=== PATIENT | female | born 1990 | race Caucasian/White ===

== ENCOUNTER 2017-06-22 17:35 | Inpatient (IN) | payer SELFPAY ==
[2017-06-22] MEDS ORDERED: NS 1000 ML 1,000 ML ONE (17:53)
--- NOTE | 2017-06-22 17:58 | DR.GENAD ---
HPI - PCP Primary Care Physician: NFD - HPI Comment HPI Comment: RUNNING FEVER AND HAVING CHEST PAIN. RAPID HEART RATE. - Complaint/Symptoms Chief Complaint Doctors Comments: SPIDER BITE INNER LT THIGH NOTED YESTERDAY. REDNESS SPREADING. Chief Complaint:: PT C/O FEVER, BITE TO HER LEFT THIGH AND TEMP OF 103.0 Self Treatment fo Chief Complaint: MOTRIN - Nurses notes reviewed Nurses Notes Review: Yes - Source History Provided: Patient - Mode of Arrival Mode of Arrival: Ambulatory - Timing Onset of Chief Complaint: 06/21/17 Came on: Suddenly - Duration Duration: Constant Duration: Days - Severity Severity: Moderate PMH - PMH Past Medical History: No Past Surgical History: Yes Surgical History: Past Surgical History Comment: TUBAL, - Family History History of Family Medical Conditions: No - Social History Does patient currently use any type of tobacco product: No Have you used tobacco products in the last 12 months: No Type of Tobacco Use: None Does any household member use tobacco: No Alcohol Use: None Do you use any recreational Drugs:: No Lives With: Family Lives Where: Home - infectious screening In the last 2 months have you had wt loss of >10#?: NO Have you had fever, night sweats or hemotysis?: No Have you traveled outside the country in the last 6 months?: No Isolation: Standard ROS - Review of Systems Constitutional: No Symptoms Reported Eyes: No Symptoms Reported ENTM: No Symptoms Reported Respiratoy: No Symptoms Reported Cardiovascular: No Symptoms Reported Gastrointestinal/Abdominal: No Symptoms Reported Genitourinary: No Symptoms Reported Neurological: No Symptoms Reported Musculoskeletal: No Symptoms Reported, Left, Hip, Leg Integumentary: Change in Color (REDNESS LEFT INNERTHIGH UPPER I/3.) Hematologic/Lymphatic: No Symptoms Reported Endocrine: No Symptoms Reported All Other Systems: Reviewed and Negative PE - Vital Signs Vitals: Temperature 99.3 F Pulse Rate [Apical] 128 Pulse Rate 143 Respiratory Rate 17 Blood Pressure [Right Arm] 109/54 Blood Pressure 118/78 O2 Sat by Pulse Oximetry 99 - General Limitations: No Limitations General Appearance: Alert - Head Head Exam: Normal Inspection - Eyes Eye exam: Normal Appearance - ENT ENT Exam: Normal External Ear Exam External Ear Exam: Normal External Inspection TM/Canal Exam: Bilateral Normal Nose Exam: Normal Nose Exam Mouth Exam: Normal Inspection Throat Exam: Normal Inspection - Neck Neck Exam: Normal Inspection - Chest Chest Inspection: Symmetric Chest Wall Rise - Respiratory Respiratory Exam: Normal Lung Sounds Bilat Respiratory Exam: Bilateral Clear to Auscultation - Cardiovascular Cardiovascular Exam: Regular Rate, Normal Rhythm, Normal Heart Sounds - Abdominal Exam Abdominal Exam: Normal Inspection - Extremities Extremities Exam: Tenderness (INNER LT THIGH UPPER 1/3.) - Back Back Exam: Normal Inspection - Neurologic Neurological Exam: Alert, Oriented X3 - Psychiatric Psychiatric Exam: Normal Affect, Normal Mood - Skin Skin Exam: Erythema MDM - Additional Information Additional Information Obtained From: Family - Differential Diagnosis Differential Diagnosis: CELLULITIS LEFT THIGH, CHEST PAIN, TACHYCARDIA Course - Treatment Treatment: SEE ORDERS. - Consultation Consultation Comments: DISCUSS PATIENT WITH DR. YE. HE WILL ADMIT PATIENT. - Education/Counseling Education/Counseling: Patient, Family, Education Educated On: Treatment, Diagnosis ROR - Labs Reviewed Laboratory Results Reviewed?: Yes Result Diagrams: 06/23/17 05:54 06/23/17 05:54 Laboratory: WBC 9.8 X10^3/uL (3.6-10.0) 06/22/17 18:20 RBC 4.61 X10^6/uL (3.5-5.4) 06/22/17 18:20 Hgb 13.2 g/dL (12.0-16.0) 06/22/17 18:20 Hct 38.5 % (36.0-47.0) 06/22/17 18:20 MCV 83.5 fL (80.0-100.0) 06/22/17 18:20 MCH 28.7 pg (27.0-34.0) 06/22/17 18:20 MCHC 34.3 g/dL (33.0-35.0) 06/22/17 18:20 RDW 14.6 % (11.6-16.5) 06/22/17 18:20 Plt Count 174 X10^3/uL (150.0-450.0) 06/22/17 18:20 MPV 7.0 fL (7.4-11.0) L 06/22/17 18:20 Neut % 78.5 % (42.0-75.0) H 06/22/17 18:20 Lymph % 14.2 % (21.0-51.0) L 06/22/17 18:20 [place] % 6.6 % (0.0-13.0) 06/22/17 18:20 Eos % 0.4 % (0.9-2.9) L 06/22/17 18:20 Baso % 0.3 % (0.2-1.0) 06/22/17 18:20 Neut # 7.7 x10^3/uL (2.2-4.8) H 06/22/17 18:20 Lymph # 1.4 X10^3/uL (1.3-2.9) 06/22/17 18:20 [place] # 0.6 x10^3/uL (0.3-0.8) 06/22/17 18:20 Eos # 0.0 x10^3/uL (0.0-0.2) 06/22/17 18:20 Baso # 0.0 X10^3/uL (0.0-0.1) 06/22/17 18:20 Absolute Nucleated RBC 0.0 /100WBC 06/22/17 18:20 Sodium 139 mmol/L (136-145) 06/22/17 18:20 Corrected Sodium 139 mmol/L (136-145) 06/22/17 18:20 Potassium 3.5 mmol/L (3.5-5.1) 06/22/17 18:20 Chloride 104 mmol/L (98-107) 06/22/17 18:20 Carbon Dioxide 25.7 mmol/L (21-32) 06/22/17 18:20 BUN 7 mg/dL (7-18) 06/22/17 18:20 Creatinine 0.87 mg/dL (0.55-1.02) 06/22/17 18:20 Est GFR (MDRD) Af Amer > 60 (>60) 06/22/17 18:20 Est GFR (MDRD) Non-Af > 60 (>60) 06/22/17 18:20 Glucose 112 mg/dL (65-99) H 06/22/17 18:20 Lactic Acid 2.9 mmol/L (0.4-2.0) H 06/22/17 18:20 Calcium 9.0 mg/dL (8.5-10.1) 06/22/17 18:20 Corrected Calcium 9.7 mg/dL (8.5-10.1) 06/22/17 18:20 Total Bilirubin 0.40 mg/dL (0.2-1.0) 06/22/17 18:20 AST 170 Units/L (15-37) H 06/22/17 18:20 ALT 587 Units/L (12-78) H 06/22/17 18:20 Alkaline Phosphatase 100 Units/L (46-116) 06/22/17 18:20 C-Reactive Protein 60.60 mg/L (0-3.0) H 06/22/17 18:20 Total Protein 6.7 g/dL (6.4-8.2) 06/22/17 18:20 Albumin 3.1 g/dL (3.4-5.0) L 06/22/17 18:20 Globulin 3.6 g/dL (2.5-4.5) 06/22/17 18:20 Albumin/Globulin Ratio 0.9 Ratio (1.1-2.1) L 06/22/17 18:20 Specimen Type Catherized urine 06/22/17 18:35 Urine Color Pale yellow (YELLOW) 06/22/17 18:35 Urine Appearance Clear (CLEAR) 06/22/17 18:35 Urine pH 7.0 (5.0 - 8.0) 06/22/17 18:35 Ur Specific [place] 1.010 (1.000-1.030) 06/22/17 18:35 Urine Protein Negative (NEGATIVE) 06/22/17 18:35 Urine Glucose (UA) Negative (NEGATIVE) 06/22/17 18:35 Urine Ketones Negative (NEGATIVE) 06/22/17 18:35 Urine Occult Blood Negative (NEGATIVE) 06/22/17 18:35 Urine Nitrite Negative (NEGATIVE) 06/22/17 18:35 Urine Bilirubin Negative (NEGATIVE) 06/22/17 18:35 Urine Urobilinogen Normal (NORMAL) 06/22/17 18:35 Ur Leukocyte Esterase Negative (NEGATIVE) 06/22/17 18:35 Urine RBC None seen /HPF (NEGATIVE) 06/22/17 18:35 Urine WBC 0-1 /HPF (NEGATIVE) 06/22/17 18:35 Ur Squamous Epith Cells Rare /HPF (NEGATIVE) 06/22/17 18:35 Urine Bacteria Trace /HPF (NEGATIVE) 06/22/17 18:35 Ur Culture Indicated? No/not indicated 06/22/17 18:35 Urine Opiates Screen Negative (NEG=<300) 06/22/17 18:35 Urine Methadone Screen Negative (NEG=<300) 06/22/17 18:35 Ur Barbiturates Screen Negative (NEG=<200) 06/22/17 18:35 Ur Phencyclidine Scrn Negative (NEG=<25) 06/22/17 18:35 Ur Amphetamines Screen Negative (NEG=<1000) 06/22/17 18:35 U Benzodiazepines Scrn Negative (NEG=<200) 06/22/17 18:35 Urine Cocaine Screen Negative (NEG=<300) 06/22/17 18:35 U Marijuana (THC) Screen Negative (NEG=<50) 06/22/17 18:35 - XRAY XRAY Interpreted by: Radiologist XRAY Findings: REPORT DISCUSS WITH PATIENT. - EKG Rhythm: NSR - Diagnosis Discharge Problem: Tachycardia, Abnormal LFTs Cellulitis Qualifiers: Site of cellulitis: extremity Site of cellulitis of extremity: lower extremity Laterality: left Qualified Code(s): L03.116 - Cellulitis of left lower limb Chest pain Qualifiers: Chest pain type: precordial pain Qualified Code(s): R07.2 - Precordial pain - Discharge Plan Disposition: ADMITTED INPATIENT Condition: Stable - Follow ups/Referrals - Instructions
[2017-06-22] MEDS ORDERED: NS 1000 ML 1,000 ML IV ONE (18:00)
[2017-06-22 18:36] LABS: BASOPHILS % (AUTO) 0.3 % (0.2-1.0); EOSINOPHILS % (AUTO) 0.4 % (0.9-2.9); HEMATOCRIT 38.5 % (36.0-47.0); HEMOGLOBIN 13.2 g/dL (12.0-16.0); LYMPHOCYTES # (AUTO) 1.4 X10^3/uL (1.3-2.9); LYMPHOCYTES % (AUTO) 14.2 % (21.0-51.0); MEAN CORPUSCULAR HEMOGLOBIN 28.7 pg (27.0-34.0); MEAN CORPUSCULAR HGB CONC 34.3 g/dL (33.0-35.0); MEAN CORPUSCULAR VOLUME 83.5 fL (80.0-100.0); MONOCYTES # (AUTO) 0.6 x10^3/uL (0.3-0.8); MONOCYTES % (AUTO) 6.6 % (0.0-13.0); NEUTROPHILS # (AUTO) 7.7 x10^3/uL (2.2-4.8); NEUTROPHILS % (AUTO) 78.5 % (42.0-75.0); PLATELET COUNT 174 X10^3/uL (150.0-450.0); RED BLOOD COUNT 4.61 X10^6/uL (3.5-5.4); RED CELL DISTRIBUTION WIDTH 14.6 % (11.6-16.5); WHITE BLOOD COUNT 9.8 X10^3/uL (3.6-10.0)
[2017-06-22 18:45] LABS: ALANINE AMINOTRANSFERASE 587 Units/L (12-78); ALBUMIN 3.1 g/dL (3.4-5.0); ALKALINE PHOSPHATASE 100 Units/L (46-116); ASPARTATE AMINO TRANSFERASE 170 Units/L (15-37); BLOOD UREA NITROGEN 7 mg/dL (7-18); CARBON DIOXIDE 25.7 mmol/L (21-32); CHLORIDE 104 mmol/L (98-107); COR CA(FOR HYPOALB) 9.7 mg/dL (8.5-10.1); COR NA(FOR HYPERGLY) 139 mmol/L (136-145); CREATININE 0.87 mg/dL (0.55-1.02); SODIUM 139 mmol/L (136-145); TOTAL PROTEIN 6.7 g/dL (6.4-8.2); eGFR BLACK RACES > 60 (>60); eGFR NON BLACK RACES > 60 (>60)
[2017-06-22 18:50] LABS: BILIRUBIN,URINE NEGATIVE (NEGATIVE); BLOOD/HEMOGLOBIN,URINE NEGATIVE (NEGATIVE); GLUCOSE, URINE NEGATIVE (NEGATIVE); KETONES,URINE NEGATIVE (NEGATIVE); LEUKOCYTE ESTERASE ,URINE NEGATIVE (NEGATIVE); NITRITES,URINE NEGATIVE (NEGATIVE); PROTEIN,URINE NEGATIVE (NEGATIVE); UROBILINOGEN,URINE NORMAL (NORMAL)
[2017-06-22 18:54] LABS: LACTIC ACID 2.9 mmol/L (0.4-2.0)
[2017-06-22 19:03] LABS: APPEARANCE,URINE CLEAR (CLEAR); COLOR,URINE PALE YELLOW (YELLOW); RBC,URINE NONE SEEN /HPF (NEGATIVE)
[2017-06-22 19:04] LABS: BACTERIA,URINE TRACE /HPF (NEGATIVE); SQUAMOUS EPITHELIAL CELL,UR RARE /HPF (NEGATIVE)
[2017-06-22] MEDS ORDERED: VANCOMYCIN HCL 1 GM VIAL ONE (19:59)
[2017-06-22] MEDS ORDERED: NS 250 ML IV 250 ML IV ONE (19:59)
[2017-06-22] MEDS: NS 1000 ML 1,000 ML IV SCH (20:12)
[2017-06-22] MEDS: VANCOMYCIN 1 GM PREMIX (ADDVANTAGE) 250 ML IV SCH ×3 (20:12→22:29)
[2017-06-22] MEDS ORDERED: NS 100 ML IV 100 ML IV ONE (20:33)
[2017-06-22] MEDS: TORADOL 30 MG VIAL IVP PRN (21:10)
--- NOTE | 2017-06-22 21:29 | CT ---
HISTORY: Chest pain Study: CTA with contrast Comparison: none Technique: Multiple axial images of the chest were obtained from the thoracic inlet to the upper abdo men after the administration of IV contrast. Coronal and sagittal 3D MIP reconstructions were perform ed. Findings: The thyroid gland is not is not well visualized. The aorta and pulmonary arteries are well opacified. The aorta is normal caliber with no aneurysm or dissection seen. There is no filling defect or vesse l cut off in the visualized pulmonary arteries. No consolidation or effusion is seen and there is no pulmonary nodule or mass. There is mild pleural thickening and scarring in the apices. The bones are intact IMPRESSION: No evidence of a pulmonary embolus. Unremarkable thoracic aorta Mild pleural thickening and scarring along the apices with no acute infiltrate or effusion. Reported By:
[2017-06-22] MEDS: CLEOCIN 600 MG IV PREMIX 600 MG/50 ML BAG IV SCH (22:55)
[2017-06-22 23:31] VITALS: BMI 23.6
[2017-06-23] MEDS: BENADRYL INJ 50 MG VIAL IVP PRN (00:21)
[2017-06-23] MEDS: TYLENOL 325 MG TAB PO PRN ×4 (01:33→23:52)
[2017-06-23] MEDS: TORADOL 30 MG VIAL IVP PRN ×3 (03:20→20:04)
[2017-06-23] MEDS: CLEOCIN 600 MG IV PREMIX 600 MG/50 ML BAG IV SCH ×3 (05:44→22:16)
[2017-06-23] MEDS: NS 1000 ML 1,000 ML IV SCH ×3 (05:44→20:08)
[2017-06-23 06:19] LABS: BASOPHILS % (AUTO) 0.1 % (0.2-1.0); EOSINOPHILS % (AUTO) 0.7 % (0.9-2.9); HEMATOCRIT 37.3 % (36.0-47.0); HEMOGLOBIN 12.8 g/dL (12.0-16.0); LYMPHOCYTES # (AUTO) 1.4 X10^3/uL (1.3-2.9); LYMPHOCYTES % (AUTO) 22.1 % (21.0-51.0); MEAN CORPUSCULAR HEMOGLOBIN 28.7 pg (27.0-34.0); MEAN CORPUSCULAR HGB CONC 34.3 g/dL (33.0-35.0); MEAN CORPUSCULAR VOLUME 83.7 fL (80.0-100.0); MEAN PLATELET VOLUME 7.5 fL (7.4-11.0); MONOCYTES # (AUTO) 0.4 x10^3/uL (0.3-0.8); NEUTROPHILS # (AUTO) 4.4 x10^3/uL (2.2-4.8); NEUTROPHILS % (AUTO) 70.1 % (42.0-75.0); PLATELET COUNT 136 X10^3/uL (150.0-450.0); RED BLOOD COUNT 4.46 X10^6/uL (3.5-5.4); RED CELL DISTRIBUTION WIDTH 14.7 % (11.6-16.5); WHITE BLOOD COUNT 6.3 X10^3/uL (3.6-10.0)
[2017-06-23 06:24] LABS: ALANINE AMINOTRANSFERASE 374 Units/L (12-78); ALBUMIN 2.6 g/dL (3.4-5.0); ALKALINE PHOSPHATASE 87 Units/L (46-116); ASPARTATE AMINO TRANSFERASE 61 Units/L (15-37); BLOOD UREA NITROGEN 10 mg/dL (7-18); CALCIUM 8.8 mg/dL (8.5-10.1); CARBON DIOXIDE 26.4 mmol/L (21-32); CHLORIDE 106 mmol/L (98-107); COR CA(FOR HYPOALB) 9.9 mg/dL (8.5-10.1); CREATININE 0.92 mg/dL (0.55-1.02); SODIUM 142 mmol/L (136-145); eGFR BLACK RACES > 60 (>60); eGFR NON BLACK RACES > 60 (>60)
[2017-06-23] MEDS ORDERED: NS 250 ML IV 250 ML IV ONE (08:47)
[2017-06-23] MEDS ORDERED: VANCOMYCIN HCL 1 GM VIAL ONE (08:48)
[2017-06-23] MEDS: VANCOMYCIN 1 GM PREMIX (ADDVANTAGE) 250 ML IV SCH ×2 (08:56→22:16)
--- NOTE | 2017-06-23 18:17 | DR.H&P ---
H&P - History & Physical for Day of: H&P Date: 06/22/17 - Chief Complaint Chief Complaint: LEFT LEG PAIN, SWELLING REDNESS, FEVER - Allergies Allergies/Adverse Reactions: Allergies Allergy/AdvReac Type Severity Reaction Status Date / Time No Known Drug Allergies Allergy Verified 06/22/17 17:36 - History of Present Illness History of Present Illness: 27 WF ADMITTED FROM ER AFTER PRESENTING WITH CO INCREASE PAIN AND REDNESS TO LEFT UPPER INNER THIGH WITH FEVER FOR 2 DAYS. PT STATES DENIES ANY KNOWN BITE OR INJURY. PT HAD ABNORMAL LABS IN ED, ELEVATED DDIMER, CTA CHEST IN ED NEGATIVE, PT STARTED ON IV ATBX. PT ADMITTED FOR TREATMENT OF LEFT LOWER EXTREMITY CELLULITIS. - Past Medical History Past Medical History: denies: Diabetes, Hypertension - Past Surgical History Surgical History: - Family History Family Medical History: Diabetes Mellitus, [place], Hypertension - Social History Does patient currently use any type of tobacco product: No Have you used tobacco products in the last 12 months: No Type of Tobacco Use: None How many years tobacco product used: 10 Does any household member use tobacco: No Alcohol Use: None Drug Use: Methamphetamine - Medications Home Medications: NK [NK] 06/22/17 [History Confirmed 06/22/17] - Review of Systems Constitutional: Fever Eyes: No Symptoms Reported ENT: No Symptoms Reported Respiratory: No Symptoms Reported Cardiovascular: No Symptoms Reported Gastrointestinal: No Symptoms Reported Genitourinary: No Symptoms Reported Musculoskeletal: Leg Pain Skin: Rash Neurological: No Symptoms Reported - Physical Exam Vital Signs: Temperature 98.1 F Pulse Rate [Apical] 117 Pulse Rate 143 Respiratory Rate 20 Blood Pressure [Right Arm] 118/61 Blood Pressure 118/78 O2 Sat by Pulse Oximetry 100 Oriented: Normal Eyes: Normal Ear: Normal Nose: Normal Throat: Normal Respiratory: Clear Throughout Cardiovascular: Normal : Normal Auscultation: Bowel Sounds: Normal Palpation: Normal Tenderness: Normal Skin: Rash (LEFT THIGH REDNESS AND EDEMA, INCREASED WARMTH, TENDERNESS) Musculoskeletal: Left, Thigh, Swelling, Tender Psychiatric: Normal Speech Pattern: Clear - Assessment/Plan (1) Cellulitis of left thigh Status: Acute Plan: ADMIT, IV ATBX, PAIN CONTROL, IV HYDRATION. US LLE, ELEVATE LOWER EXTREMITY, RESUME HOME MEDS. REPEAT AM LABS, BLOOD CULTURES (2) Fever Status: Acute
[2017-06-23] MEDS ORDERED: VANCOMYCIN 1 GM PREMIX (ADDVANTAGE) 250 ML IV ONE (20:30)
[2017-06-24] MEDS: BENADRYL INJ 50 MG VIAL IVP PRN (00:11)
[2017-06-24] MEDS: NS 1000 ML 1,000 ML IV SCH ×5 (05:56→20:08)
[2017-06-24 06:17] LABS: BASOPHILS % (AUTO) 0.2 % (0.2-1.0); EOSINOPHILS # (AUTO) 0.1 x10^3/uL (0.0-0.2); EOSINOPHILS % (AUTO) 1.7 % (0.9-2.9); HEMATOCRIT 30.2 % (36.0-47.0); HEMOGLOBIN 10.5 g/dL (12.0-16.0); LYMPHOCYTES # (AUTO) 1.7 X10^3/uL (1.3-2.9); LYMPHOCYTES % (AUTO) 18.9 % (21.0-51.0); MEAN CORPUSCULAR HGB CONC 34.7 g/dL (33.0-35.0); MEAN CORPUSCULAR VOLUME 83.6 fL (80.0-100.0); MEAN PLATELET VOLUME 7.7 fL (7.4-11.0); MONOCYTES # (AUTO) 0.4 x10^3/uL (0.3-0.8); MONOCYTES % (AUTO) 4.7 % (0.0-13.0); NEUTROPHILS # (AUTO) 6.6 x10^3/uL (2.2-4.8); NEUTROPHILS % (AUTO) 74.5 % (42.0-75.0); PLATELET COUNT 123 X10^3/uL (150.0-450.0); RED BLOOD COUNT 3.61 X10^6/uL (3.5-5.4); RED CELL DISTRIBUTION WIDTH 15.2 % (11.6-16.5); WHITE BLOOD COUNT 8.9 X10^3/uL (3.6-10.0)
[2017-06-24 06:28] LABS: ALANINE AMINOTRANSFERASE 197 Units/L (12-78); ALKALINE PHOSPHATASE 79 Units/L (46-116); ASPARTATE AMINO TRANSFERASE 17 Units/L (15-37); BLOOD UREA NITROGEN 12 mg/dL (7-18); CALCIUM 8.2 mg/dL (8.5-10.1); CARBON DIOXIDE 24.5 mmol/L (21-32); CHLORIDE 109 mmol/L (98-107); COR CA(FOR HYPOALB) 9.8 mg/dL (8.5-10.1); CREATININE 0.84 mg/dL (0.55-1.02); SODIUM 141 mmol/L (136-145); TOTAL PROTEIN 5.3 g/dL (6.4-8.2); eGFR BLACK RACES > 60 (>60); eGFR NON BLACK RACES > 60 (>60)
[2017-06-24] MEDS: CLEOCIN 600 MG IV PREMIX 600 MG/50 ML BAG IV SCH (06:33)
[2017-06-24 06:49] LABS: BAND NEUTROPHILS % 12 % (0-10)
[2017-06-24 06:50] LABS: PLATELET MORPHOLOGY COMMENT NORMAL (NORMAL)
[2017-06-24] MEDS: TYLENOL 325 MG TAB PO PRN ×3 (07:24→21:07)
--- NOTE | 2017-06-24 07:44 | VAS ---
HISTORY: Left leg swollen and red Study: Deep vein Doppler ultrasound of the left lower extremity Comparison: No priors TECHNIQUE: Multiple todd scale and color flow Doppler images of the deep venous system were obtained of the left lower extremity. FINDINGS: The deep venous system of the left lower extremity was evaluated from the level of the common femoral vein through the popliteal vein. Normal color flow and augmentation can be observed. In addition, normal compression is seen throughout the deep venous system. IMPRESSION: 1. Negative for DVT. Reported By:
[2017-06-24] MEDS ORDERED: PHARMACY COMMENT IV SCH (08:30)
[2017-06-24] MEDS ORDERED: VANCOMYCIN HCL 1 GM VIAL ONE (08:44)
[2017-06-24] MEDS ORDERED: NS 250 ML IV 250 ML IV ONE (08:44)
[2017-06-24] MEDS: VANCOMYCIN 1 GM PREMIX (ADDVANTAGE) 250 ML IV SCH (08:48)
[2017-06-24 09:24] LABS: VANCOMYCIN,TROUGH 5.5 ug/mL (15-20)
[2017-06-24] MEDS: PERCOCET TAB 5/325 MG PO PRN ×2 (10:36→18:28)
[2017-06-24] MEDS: COLACE CAP 100 MG PO SCH ×2 (10:37→21:05)
[2017-06-24] MEDS: MERREM VIAL 500 MG in NS 100 ML IV 100 ML IV SCH ×2 (13:17→21:41)
[2017-06-24] MEDS: TORADOL 30 MG VIAL IVP PRN ×2 (14:11→20:30)
[2017-06-24] MEDS ORDERED: VANCOMYCIN HCL 1 GM VIAL 1 GM in D5W 250 ML IV 250 ML IV SCH (21:00)
[2017-06-25] MEDS: BENADRYL INJ 50 MG VIAL IVP PRN ×2 (00:07→21:51)
[2017-06-25] MEDS: PERCOCET TAB 5/325 MG PO PRN ×4 (02:00→21:55)
[2017-06-25] MEDS: NS 1000 ML 1,000 ML IV SCH ×2 (05:41→16:30)
[2017-06-25] MEDS: MERREM VIAL 500 MG in NS 100 ML IV 100 ML IV SCH ×3 (05:41→21:50)
[2017-06-25 06:08] LABS: BASOPHILS % (AUTO) 0.3 % (0.2-1.0); EOSINOPHILS # (AUTO) 0.2 x10^3/uL (0.0-0.2); EOSINOPHILS % (AUTO) 2.3 % (0.9-2.9); HEMATOCRIT 27.1 % (36.0-47.0); HEMOGLOBIN 9.5 g/dL (12.0-16.0); LYMPHOCYTES # (AUTO) 1.9 X10^3/uL (1.3-2.9); LYMPHOCYTES % (AUTO) 18.2 % (21.0-51.0); MEAN CORPUSCULAR HEMOGLOBIN 29.2 pg (27.0-34.0); MEAN CORPUSCULAR VOLUME 83.2 fL (80.0-100.0); MEAN PLATELET VOLUME 7.6 fL (7.4-11.0); MONOCYTES # (AUTO) 0.4 x10^3/uL (0.3-0.8); MONOCYTES % (AUTO) 3.9 % (0.0-13.0); NEUTROPHILS # (AUTO) 7.8 x10^3/uL (2.2-4.8); NEUTROPHILS % (AUTO) 75.3 % (42.0-75.0); PLATELET COUNT 123 X10^3/uL (150.0-450.0); RED BLOOD COUNT 3.26 X10^6/uL (3.5-5.4); WHITE BLOOD COUNT 10.3 X10^3/uL (3.6-10.0)
[2017-06-25 06:22] LABS: ALANINE AMINOTRANSFERASE 125 Units/L (12-78); ALBUMIN 1.8 g/dL (3.4-5.0); ALKALINE PHOSPHATASE 83 Units/L (46-116); ASPARTATE AMINO TRANSFERASE 12 Units/L (15-37); BLOOD UREA NITROGEN 13 mg/dL (7-18); CALCIUM 7.8 mg/dL (8.5-10.1); CARBON DIOXIDE 21.3 mmol/L (21-32); CHLORIDE 109 mmol/L (98-107); COR CA(FOR HYPOALB) 9.6 mg/dL (8.5-10.1); CREATININE 0.81 mg/dL (0.55-1.02); SODIUM 141 mmol/L (136-145); TOTAL PROTEIN 5.2 g/dL (6.4-8.2); eGFR BLACK RACES > 60 (>60); eGFR NON BLACK RACES > 60 (>60)
[2017-06-25] MEDS: TYLENOL 325 MG TAB PO PRN ×2 (06:54→19:35)
[2017-06-25 06:59] LABS: ERYTHROCYTE SEDIMENTATION RATE 68 MM/HOUR (0-20)
[2017-06-25] MEDS ORDERED: K-LYTE EFFERVESCENT PO PRN (07:52)
[2017-06-25] MEDS ORDERED: MAG-OX TAB PO PRN (07:52)
[2017-06-25] MEDS: K-DUR TAB 20 MEQ PO SCH ×2 (09:35→21:50)
[2017-06-25] MEDS: TORADOL 30 MG VIAL IVP PRN ×2 (12:36→19:37)
[2017-06-25] MEDS: VANCOMYCIN HCL 1 GM VIAL 1 GM in D5W 250 ML IV 250 ML IV SCH ×2 (13:15→21:50)
--- NOTE | 2017-06-25 14:03 | CT ---
HISTORY: Left upper thigh cellulitis for 3 days. Fever. Study: Computed tomography of the left thigh: Multiple axial images were obtained throughout the lef t thigh after the injection of intravascular contrast per standard protocol. Radiation dose reduction techniques utilized. Comparison: None Findings: There is significant fluid and edema within the subcutaneous fat extending from the upper most image which just above the left iliac crest down along the thigh laterally and anteriorly. Just inferior to the trochanter region it appears to be more just soft tissue stranding and edema in fat and it becom es more fluid-like along the lateral aspect of the thigh following the iliotibial tract. At approxima tely the level of the acetabulum there may actually a focal fluid collection measuring approximately 4.4 by 2.2 by 3.9 cm. This could be a subcutaneous abscess and follow-up ultrasound is recommended. T his is along the toya lateral aspect of the pelvis. Aspiration may be necessary. There is suggestio n of a another small focal fluid collection along the medial aspect of the proximal thigh just inferi or to the labia measuring approximately 3.6 by 1.6 by 2.9 cm. The muscle compartments appear normal. The vasculature appears normal. No evidence of joint effusion is noted in the left hip. The intrapelvic structures appear normal. IMPRESSION: 1. There is diffuse soft tissue swelling with diffuse fluid and edema involving predominantly the sub cutaneous fat along the anterior and lateral aspect of the left pelvis and left thigh. There are 2 ar eas suspicious for focal fluid collections, 1 approximately the level of the acetabulum toya-latera lly and the other just inferior to the labia medially. Ultrasound may be of assistance in defining th clarisse as focal fluid collections and aspiration may need to be performed. Reported By:
[2017-06-25 15:29] LABS: SERUM PREGNANCY TEST, QUAL NEGATIVE <10 mIU/mL
[2017-06-25] MEDS ORDERED: NS 1000 ML 1,000 ML ONE (17:56)
[2017-06-25] MEDS ORDERED: MARCAINE 0.25% INJ ONE (18:21)
[2017-06-25] MEDS ORDERED: XYLOCAINE 1 % (PLAIN) ONE (18:21)
[2017-06-25] MEDS: COLACE CAP 100 MG PO SCH (21:51)
[2017-06-26] MEDS: NS 1000 ML 1,000 ML IV SCH ×2 (02:00→18:36)
[2017-06-26 04:40] LABS: BASOPHILS % (AUTO) 0.6 % (0.2-1.0); EOSINOPHILS # (AUTO) 0.2 x10^3/uL (0.0-0.2); EOSINOPHILS % (AUTO) 2.8 % (0.9-2.9); HEMATOCRIT 27.2 % (36.0-47.0); HEMOGLOBIN 9.3 g/dL (12.0-16.0); LYMPHOCYTES % (AUTO) 24.5 % (21.0-51.0); MEAN CORPUSCULAR HEMOGLOBIN 28.5 pg (27.0-34.0); MEAN CORPUSCULAR HGB CONC 34.3 g/dL (33.0-35.0); MEAN CORPUSCULAR VOLUME 83.2 fL (80.0-100.0); MEAN PLATELET VOLUME 7.6 fL (7.4-11.0); MONOCYTES # (AUTO) 0.5 x10^3/uL (0.3-0.8); MONOCYTES % (AUTO) 5.7 % (0.0-13.0); NEUTROPHILS # (AUTO) 5.4 x10^3/uL (2.2-4.8); NEUTROPHILS % (AUTO) 66.4 % (42.0-75.0); PLATELET COUNT 147 X10^3/uL (150.0-450.0); RED BLOOD COUNT 3.28 X10^6/uL (3.5-5.4); WHITE BLOOD COUNT 8.1 X10^3/uL (3.6-10.0)
[2017-06-26 04:42] LABS: ALANINE AMINOTRANSFERASE 90 Units/L (12-78); ALBUMIN 1.7 g/dL (3.4-5.0); ALKALINE PHOSPHATASE 86 Units/L (46-116); ASPARTATE AMINO TRANSFERASE 14 Units/L (15-37); BLOOD UREA NITROGEN 9 mg/dL (7-18); CALCIUM 7.9 mg/dL (8.5-10.1); CARBON DIOXIDE 25.7 mmol/L (21-32); CHLORIDE 108 mmol/L (98-107); COR CA(FOR HYPOALB) 9.7 mg/dL (8.5-10.1); CREATININE 0.78 mg/dL (0.55-1.02); SODIUM 131 mmol/L (136-145); TOTAL PROTEIN 5.4 g/dL (6.4-8.2); eGFR BLACK RACES > 60 (>60); eGFR NON BLACK RACES > 60 (>60)
[2017-06-26] MEDS: MAGNESIUM SULFATE 1 GM/100 mL PREMIX 1 GM/100 ML BAG IV PRN ×2 (05:26→06:32)
--- NOTE | 2017-06-26 06:19 | RAD ---
HISTORY: Fever, cellulitis, palpitations Study: Chest AP portable Comparison: None Findings: The heart is mildly enlarged. The nii are prominent and indistinct in the interstitium is prominent suggestive of mild interstitial edema. No alveolar edema, alveolar infiltrates, pleural effusions are identified. The bony thorax is unremarkable. IMPRESSION: Mild cardiomegaly with mild interstitial edema which could be cardiogenic or noncardiogenic or due to hypervolemia. Reported By:
[2017-06-26] MEDS: VANCOMYCIN HCL 1 GM VIAL 1 GM in D5W 250 ML IV 250 ML IV SCH ×3 (06:32→21:00)
[2017-06-26] MEDS: MERREM VIAL 500 MG in NS 100 ML IV 100 ML IV SCH ×3 (06:32→21:09)
[2017-06-26] MEDS: TORADOL 30 MG VIAL IVP PRN ×2 (07:18→17:15)
[2017-06-26] MEDS ORDERED: MARCAINE 0.25% INJ ONE (07:57)
[2017-06-26] MEDS ORDERED: NS 1000 ML 1,000 ML ONE (08:17)
[2017-06-26] MEDS ORDERED: FENTANYL INJ 100 mcg ONE (08:27)
[2017-06-26] MEDS ORDERED: NS IRRIGATION 1000 ML 1,000 ML IR ONE (09:30)
[2017-06-26] MEDS ORDERED: DILAUDID INJ ONE (09:44)
[2017-06-26] MEDS ORDERED: NS IRRIGATION 3000 ML 3,000 ML IR ONE (09:45)
[2017-06-26] MEDS: DILAUDID INJ ONE ×3 (10:00→10:30)
[2017-06-26] MEDS ORDERED: REGLAN INJ 10 MG VIAL IVP PRN (10:16)
[2017-06-26] MEDS ORDERED: BENADRYL INJ 50 MG VIAL IVP PRN (10:16)
[2017-06-26] MEDS ORDERED: PHENERGAN INJ 25 MG IVP PRN (10:16)
[2017-06-26] MEDS ORDERED: ZOFRAN INJ 4 MG VIAL IVP PRN (10:16)
[2017-06-26] MEDS ORDERED: DILAUDID INJ IVP PRN (10:16)
--- NOTE | 2017-06-26 10:20 | OR.GENERIC ---
Post-Op Note Generic - Post-Op Note Operative Report: Date of Operation: June 26, 2017 Pre-Operative Diagnosis: Left thigh / inguinal abscess and cellulitis. Post-Operative Diagnosis: Left thigh / inguinal abscess and severe cellulitis. Procedure: Incision and drainage of left thigh / inguinal abscess with washout (pulse lavage). Surgeon: Price Villalba MD Echometer Engineer: Lisy Yanes CRNA Anesthesia: General endotracheal and local. Specimen: Wound culture. Estimated blood loss: Minimal. Complications: None. Summary: The patient is a 27 year old female who presented with left thigh / inguinal cellulitis. The patient was placed on IV antibiotics without improvement. A CT of the region demonstrated two fluid collections that likely represented abscesses. The patient was offered incision and drainage. The risk and benefits of the procedure including difficulty with anesthesia, bleeding, infection, scar formation, delayed healing, as well as recurrence were discussed with the patient. The patient understood these risks and requested the procedure. On June 26, 2017, the patient was brought to the operative theatre. A time out was performed verifying the patient and the procedure. After satisfactory induction of general endotracheal anesthesia, the abdomen, left thigh, and perineum were prepped with Chloraprep and draped in the usual fashion. Significant edema and erythema were noted throughout the anterior thigh and extended onto the left inguinal region. Local anesthetic was infiltrated around the area of greatest induration on the anterior thigh and medial thigh. A small core of skin was removed sharply from both of these locations. The abscess cavities were entered bluntly. Purulent drainage was noted. Cultures from each were obtained and sent to microbiology. All loculations were disrupted bluntly. The abscess cavities connected in the subcutaneous tissue just inferior to the inguinal ligament. The abscess cavity was copiously irrigated. This was performed with a pulse lavage. Retractors were placed and the fascia examined. No fasciitis was seen. Next, a [place] drain was placed through the subcutaneous space and out both incisions. A sterile dressing was placed. The patient was awakened and taken to the recovery room in stable condition. There were no complications. All counts were correct.
[2017-06-26] MEDS ORDERED: LACTINEX GRANULES PO ONE (10:26)
[2017-06-26] MEDS: K-RIDER 10 MEQ/NS 100 ML 10 MEQ/100 ML BAG IV PRN ×4 (13:30→18:37)
[2017-06-26] MEDS: PERCOCET TAB 5/325 MG PO PRN ×2 (14:20→20:50)
[2017-06-26] MEDS: CLEOCIN 600 MG IV PREMIX 600 MG/50 ML BAG IV SCH ×2 (14:21→21:09)
[2017-06-26] MEDS: HEPARIN SODIUM INJ 5000 UNITS SC SCH ×2 (14:22→21:00)
[2017-06-26 15:38] LABS: CREATININE 0.76 mg/dL (0.55-1.02); VANCOMYCIN,TROUGH 9.9 ug/mL (15-20)
[2017-06-26] MEDS ORDERED: VERSED ONE (15:53)
[2017-06-26] MEDS ORDERED: DIPRIVAN VIAL ONE (15:53)
[2017-06-26] MEDS: COLACE CAP 100 MG PO SCH (20:51)
[2017-06-27] MEDS: PERCOCET TAB 5/325 MG PO PRN ×3 (04:20→21:58)
[2017-06-27] MEDS: HEPARIN SODIUM INJ 5000 UNITS SC SCH ×3 (05:24→21:09)
[2017-06-27] MEDS: NS 1000 ML 1,000 ML IV SCH ×3 (05:25→20:52)
[2017-06-27] MEDS: MERREM VIAL 500 MG in NS 100 ML IV 100 ML IV SCH ×3 (05:27→21:00)
[2017-06-27] MEDS: CLEOCIN 600 MG IV PREMIX 600 MG/50 ML BAG IV SCH ×4 (05:27→21:00)
[2017-06-27] MEDS: VANCOMYCIN HCL 1 GM VIAL 1 GM in D5W 250 ML IV 250 ML IV SCH ×3 (05:27→22:40)
[2017-06-27 06:21] LABS: BASOPHILS % (AUTO) 0.7 % (0.2-1.0); EOSINOPHILS # (AUTO) 0.3 x10^3/uL (0.0-0.2); EOSINOPHILS % (AUTO) 4.1 % (0.9-2.9); HEMATOCRIT 27.6 % (36.0-47.0); HEMOGLOBIN 9.6 g/dL (12.0-16.0); LYMPHOCYTES # (AUTO) 2.1 X10^3/uL (1.3-2.9); LYMPHOCYTES % (AUTO) 34.5 % (21.0-51.0); MEAN CORPUSCULAR HEMOGLOBIN 28.9 pg (27.0-34.0); MEAN CORPUSCULAR HGB CONC 34.6 g/dL (33.0-35.0); MEAN CORPUSCULAR VOLUME 83.4 fL (80.0-100.0); MEAN PLATELET VOLUME 7.1 fL (7.4-11.0); MONOCYTES # (AUTO) 0.5 x10^3/uL (0.3-0.8); MONOCYTES % (AUTO) 7.6 % (0.0-13.0); NEUTROPHILS # (AUTO) 3.3 x10^3/uL (2.2-4.8); NEUTROPHILS % (AUTO) 53.1 % (42.0-75.0); PLATELET COUNT 190 X10^3/uL (150.0-450.0); RED BLOOD COUNT 3.31 X10^6/uL (3.5-5.4); RED CELL DISTRIBUTION WIDTH 15.1 % (11.6-16.5); WHITE BLOOD COUNT 6.2 X10^3/uL (3.6-10.0)
[2017-06-27 06:22] LABS: ALANINE AMINOTRANSFERASE 68 Units/L (12-78); ALBUMIN 1.8 g/dL (3.4-5.0); ALKALINE PHOSPHATASE 83 Units/L (46-116); ASPARTATE AMINO TRANSFERASE 10 Units/L (15-37); BLOOD UREA NITROGEN 10 mg/dL (7-18); CALCIUM 8.3 mg/dL (8.5-10.1); CARBON DIOXIDE 27.5 mmol/L (21-32); CHLORIDE 107 mmol/L (98-107); COR CA(FOR HYPOALB) 10.1 mg/dL (8.5-10.1); CREATININE 0.66 mg/dL (0.55-1.02); SODIUM 142 mmol/L (136-145); TOTAL PROTEIN 5.5 g/dL (6.4-8.2); eGFR BLACK RACES > 60 (>60); eGFR NON BLACK RACES > 60 (>60)
[2017-06-27 07:27] LABS: BAND NEUTROPHILS % 2 % (0-10); PLATELET MORPHOLOGY COMMENT NORMAL (NORMAL)
[2017-06-27] MEDS: TORADOL 30 MG VIAL IVP PRN (09:11)
--- NOTE | 2017-06-27 10:24 | PCM.PROG ---
Progress Note - Progress Note for Day of Date: 06/27/17 - Subjective Subjective: Requesting additional pain meds. NPO. (+) OOB. - Past Medical Family Social History Allergies: Allergies No Known Drug Allergies Allergy (Verified 06/22/17 17:36) - Vital Signs and I&O's Vital Signs: Temperature 98.5 F Pulse Rate [Left Brachial] 91 Pulse Rate [Right Brachial] 82 Pulse Rate [Apical] 105 Pulse Rate 90 Respiratory Rate 18 Blood Pressure [Left Arm] 136/86 Blood Pressure [Right Arm] 135/70 Blood Pressure 130/74 O2 Sat by Pulse Oximetry 97 Intake and Output: Intake & Output 06/24/17 06/25/17 06/26/17 06/27/17 11:59 11:59 11:59 11:59 Intake Total 4724 4481 1600 2100 Output Total 4000 Balance 4724 4481 -2400 2100 - Physical Exam Oriented: Normal Eyes: Normal Ear: Normal Nose: Normal Throat: Normal Cardiovascular: Normal : Normal Auscultation: Bowel Sounds: Normal Tenderness: Normal Skin: Red, Tender, Wound (Left anterior thigh with jayson in place. Purulent drainage. Erythema and induration slightly improved. Induration without significant change medial thigh inferior from left labia. ) Musculoskeletal: Left, Thigh, Swelling, Tender Psychiatric: Normal Mood Description: Calm Speech Pattern: Clear, Appropriate - Laboratory and Diagnostics Result Diagrams: 06/27/17 03:55 06/27/17 03:55 Labs: 06/26/17 10:23 Drainage Gram Stain - Final 06/26/17 10:23 Drainage Wound Culture - Preliminary 06/22/17 18:20 Blood Blood Culture - Preliminary 06/22/17 18:07 Blood Blood Culture - Preliminary Laboratory WBC 6.2 X10^3/uL (3.6-10.0) 06/27/17 03:55 RBC 3.31 X10^6/uL (3.5-5.4) L 06/27/17 03:55 Hgb 9.6 g/dL (12.0-16.0) L 06/27/17 03:55 Hct 27.6 % (36.0-47.0) L 06/27/17 03:55 MCV 83.4 fL (80.0-100.0) 06/27/17 03:55 MCH 28.9 pg (27.0-34.0) 06/27/17 03:55 MCHC 34.6 g/dL (33.0-35.0) 06/27/17 03:55 RDW 15.1 % (11.6-16.5) 06/27/17 03:55 Plt Count 190 X10^3/uL (150.0-450.0) 06/27/17 03:55 Plt Count Comment Adequate (ADEQUATE) 06/27/17 03:55 MPV 7.1 fL (7.4-11.0) L 06/27/17 03:55 Neut % 53.1 % (42.0-75.0) 06/27/17 03:55 Lymph % 34.5 % (21.0-51.0) 06/27/17 03:55 [place] % 7.6 % (0.0-13.0) 06/27/17 03:55 Eos % 4.1 % (0.9-2.9) H 06/27/17 03:55 Baso % 0.7 % (0.2-1.0) 06/27/17 03:55 Neut # 3.3 x10^3/uL (2.2-4.8) 06/27/17 03:55 Lymph # 2.1 X10^3/uL (1.3-2.9) 06/27/17 03:55 [place] # 0.5 x10^3/uL (0.3-0.8) 06/27/17 03:55 Eos # 0.3 x10^3/uL (0.0-0.2) H 06/27/17 03:55 Baso # 0.0 X10^3/uL (0.0-0.1) 06/27/17 03:55 Absolute Nucleated RBC 0.1 /100WBC 06/27/17 03:55 Total Counted 100 06/27/17 03:55 Neutrophils % (Manual) 54 % (39-76) 06/27/17 03:55 Band Neutrophils % 2 % (0-10) 06/27/17 03:55 Lymphocytes % (Manual) 36 % (13-43) 06/27/17 03:55 Monocytes % (Manual) 8 % (4-9) 06/27/17 03:55 Eosinophils % (Manual) 1 % (0-6) 06/24/17 05:25 Plt Morphology Comment Normal (NORMAL) 06/27/17 03:55 RBC Morphology Normal (NORMAL) 06/27/17 03:55 ESR 68 MM/HOUR (0-20) H 06/25/17 05:31 D-Dimer 462 ng/mL (0-400) H* 06/22/17 18:20 Sodium 142 mmol/L (136-145) 06/27/17 03:55 Corrected Sodium TNP 06/27/17 03:55 Potassium 3.6 mmol/L (3.5-5.1) 06/27/17 03:55 Chloride 107 mmol/L (98-107) 06/27/17 03:55 Carbon Dioxide 27.5 mmol/L (21-32) 06/27/17 03:55 BUN 10 mg/dL (7-18) 06/27/17 03:55 Creatinine 0.66 mg/dL (0.55-1.02) 06/27/17 03:55 Est GFR (MDRD) Af Amer > 60 (>60) 06/27/17 03:55 Est GFR (MDRD) Non-Af > 60 (>60) 06/27/17 03:55 Glucose 84 mg/dL (65-99) 06/27/17 03:55 Lactic Acid 2.9 mmol/L (0.4-2.0) H 06/22/17 18:20 Calcium 8.3 mg/dL (8.5-10.1) L 06/27/17 03:55 Corrected Calcium 10.1 mg/dL (8.5-10.1) 06/27/17 03:55 Magnesium 1.8 mg/dL (1.7-2.9) 06/26/17 03:15 Total Bilirubin 0.20 mg/dL (0.2-1.0) 06/27/17 03:55 AST 10 Units/L (15-37) L 06/27/17 03:55 ALT 68 Units/L (12-78) 06/27/17 03:55 Alkaline Phosphatase 83 Units/L (46-116) 06/27/17 03:55 C-Reactive Protein 70.40 mg/L (0-3.0) H 06/27/17 08:50 Total Protein 5.5 g/dL (6.4-8.2) L 06/27/17 03:55 Albumin 1.8 g/dL (3.4-5.0) L 06/27/17 03:55 Globulin 3.7 g/dL (2.5-4.5) 06/27/17 03:55 Albumin/Globulin Ratio 0.5 Ratio (1.1-2.1) L 06/27/17 03:55 TSH 3rd Generation 2.592 uIU/mL (0.358-3.74) 06/22/17 18:20 HCG, Qual Negative <10 mIU/mL 06/25/17 14:46 Specimen Type Catherized urine 06/22/17 18:35 Urine Color Pale yellow (YELLOW) 06/22/17 18:35 Urine Appearance Clear (CLEAR) 06/22/17 18:35 Urine pH 7.0 (5.0 - 8.0) 06/22/17 18:35 Ur Specific [place] 1.010 (1.000-1.030) 06/22/17 18:35 Urine Protein Negative (NEGATIVE) 06/22/17 18:35 Urine Glucose (UA) Negative (NEGATIVE) 06/22/17 18:35 Urine Ketones Negative (NEGATIVE) 06/22/17 18:35 Urine Occult Blood Negative (NEGATIVE) 06/22/17 18:35 Urine Nitrite Negative (NEGATIVE) 06/22/17 18:35 Urine Bilirubin Negative (NEGATIVE) 06/22/17 18:35 Urine Urobilinogen Normal (NORMAL) 06/22/17 18:35 Ur Leukocyte Esterase Negative (NEGATIVE) 06/22/17 18:35 Urine RBC None seen /HPF (NEGATIVE) 06/22/17 18:35 Urine WBC 0-1 /HPF (NEGATIVE) 06/22/17 18:35 Ur Squamous Epith Cells Rare /HPF (NEGATIVE) 06/22/17 18:35 Urine Bacteria Trace /HPF (NEGATIVE) 06/22/17 18:35 Ur Culture Indicated? No/not indicated 06/22/17 18:35 Vancomycin Trough 9.9 ug/mL (15-20) L 06/26/17 15:01 Urine Opiates Screen Negative (NEG=<300) 06/22/17 18:35 Urine Methadone Screen Negative (NEG=<300) 06/22/17 18:35 Ur Barbiturates Screen Negative (NEG=<200) 06/22/17 18:35 Ur Phencyclidine Scrn Negative (NEG=<25) 06/22/17 18:35 Ur Amphetamines Screen Negative (NEG=<1000) 06/22/17 18:35 U Benzodiazepines Scrn Negative (NEG=<200) 06/22/17 18:35 Urine Cocaine Screen Negative (NEG=<300) 06/22/17 18:35 U Marijuana (THC) Screen Negative (NEG=<50) 06/22/17 18:35 - Plan (1) Cellulitis of left thigh Status: Acute Plan: Continue IV abx. Leave jayson in place. Monitor medial thigh. May need washout and exam under anesthesia in region of concern. Await cultures. Will follow. Pain meds per PCP. Restart diet.
[2017-06-27] MEDS: TORADOL 30 MG VIAL IVP SCH ×2 (14:45→20:53)
[2017-06-27] MEDS: BENADRYL INJ 50 MG VIAL IVP PRN (20:59)
[2017-06-27] MEDS: COLACE CAP 100 MG PO SCH ×2 (20:59→21:00)
[2017-06-27 21:35] LABS: CREATININE 0.79 mg/dL (0.55-1.02); VANCOMYCIN,TROUGH 11.2 ug/mL (15-20)
[2017-06-27] MEDS ORDERED: PERCOCET TAB 5/325 MG PO ONE (23:02)
[2017-06-28] MEDS: TORADOL 30 MG VIAL IVP SCH ×4 (00:45→19:23)
[2017-06-28] MEDS: PERCOCET TAB 5/325 MG PO PRN ×4 (03:42→21:40)
[2017-06-28 05:12] LABS: BASOPHILS % (AUTO) 0.6 % (0.2-1.0); EOSINOPHILS # (AUTO) 0.3 x10^3/uL (0.0-0.2); EOSINOPHILS % (AUTO) 3.5 % (0.9-2.9); HEMATOCRIT 29.3 % (36.0-47.0); LYMPHOCYTES # (AUTO) 2.8 X10^3/uL (1.3-2.9); LYMPHOCYTES % (AUTO) 38.2 % (21.0-51.0); MEAN CORPUSCULAR HEMOGLOBIN 28.4 pg (27.0-34.0); MEAN CORPUSCULAR HGB CONC 34.1 g/dL (33.0-35.0); MEAN CORPUSCULAR VOLUME 83.3 fL (80.0-100.0); MEAN PLATELET VOLUME 6.8 fL (7.4-11.0); MONOCYTES # (AUTO) 0.5 x10^3/uL (0.3-0.8); NEUTROPHILS # (AUTO) 3.7 x10^3/uL (2.2-4.8); NEUTROPHILS % (AUTO) 50.7 % (42.0-75.0); PLATELET COUNT 247 X10^3/uL (150.0-450.0); RED BLOOD COUNT 3.51 X10^6/uL (3.5-5.4); RED CELL DISTRIBUTION WIDTH 15.1 % (11.6-16.5); WHITE BLOOD COUNT 7.3 X10^3/uL (3.6-10.0)
[2017-06-28 05:26] LABS: ALANINE AMINOTRANSFERASE 50 Units/L (12-78); ALBUMIN 1.8 g/dL (3.4-5.0); ALKALINE PHOSPHATASE 79 Units/L (46-116); ASPARTATE AMINO TRANSFERASE 8 Units/L (15-37); BLOOD UREA NITROGEN 8 mg/dL (7-18); CHLORIDE 108 mmol/L (98-107); COR CA(FOR HYPOALB) 9.8 mg/dL (8.5-10.1); CREATININE 0.67 mg/dL (0.55-1.02); SODIUM 143 mmol/L (136-145); TOTAL PROTEIN 5.5 g/dL (6.4-8.2); eGFR BLACK RACES > 60 (>60); eGFR NON BLACK RACES > 60 (>60)
[2017-06-28] MEDS: HEPARIN SODIUM INJ 5000 UNITS SC SCH ×3 (05:53→21:44)
[2017-06-28] MEDS: CLEOCIN 600 MG IV PREMIX 600 MG/50 ML BAG IV SCH ×3 (05:53→16:05)
[2017-06-28] MEDS: MERREM VIAL 500 MG in NS 100 ML IV 100 ML IV SCH ×3 (05:53→21:37)
[2017-06-28] MEDS: VANCOMYCIN HCL 1 GM VIAL 1 GM in D5W 250 ML IV 250 ML IV SCH ×3 (05:53→21:36)
[2017-06-28 05:56] LABS: BAND NEUTROPHILS % 3 % (0-10); PLATELET MORPHOLOGY COMMENT NORMAL (NORMAL)
[2017-06-28] MEDS: NS 1000 ML 1,000 ML IV SCH ×4 (05:57→21:28)
--- NOTE | 2017-06-28 20:56 | PCM.PROG ---
Progress Note - Progress Note for Day of Date: 06/27/17 - Subjective Subjective: WAS ADMITTED FOR LEFT UPPER THIGH CELLULITIS. A CT OF THE LEFT LOWER EXTREMITY THAT WAS OBTAINED ON 06/25/17 REPORTED 2 AREAS THAT WERE SUSPICIOUS FOR FOCUL FLUID COLLECTIONS, 1 APPROXIMATELY THE LEVEL OF THE ACETABULUM ANTEROPLATERALLY AND THE OTHER JUST INFERIOR TO THE LABIA MEDIALLY. IT SUGGESTION THE ASPIRATION MAY BE NEEDED. WAS CONSULTED AND TOOK PATIENT TO THE OR FOR I&D OF THE LEFT THIGH/INGUINAL ABSCESS WITH WASHOUT ( PULSE LAVAGE). SHE HAS BEEN RECEIVING IV ANTIBIOTICS. TODAY, PATIENT IS ALERT AND ORIENTED, LYING IN BED ON MORNING ROUNDS. SHE IS NOTED WITH COMPLAINTS OF LEFT LEG PAIN. LEG CONTINUES WITH EDEMA AND ERYTHEMA THROUGHOUT THE THIGHT AND INGUINAL REGION. A DRESSING IS NOTED TO WOUND, DRY AND INTACT AT THIS TIME. HER VITALS SIGNS THIS MORNING ARE 98.5-82-18-97%-135/70. ABNORMAL LAB VALUES INCLUDE THE FOLLOWING: RBC 3.31, HGB 9.6, HCT 27.6, CALCIUM 8.3, AST 10, TOTAL PROTEIN 5.5, ALBUMIN 1.8, A/G RATIO 0.5, ESR 67, CRP 70.40. PRELIMINARY WOUND CULTURES REPORT GROWTH OF GRAM POSITIVE COCCI. WE WILL CHANGE THE TORADOL TO SCHEDULED DOSES. OTHERWISE, WE WILL CONTINUE WITH CURRENT PLAN OF CARE. WE PLAN TO FOLLOW UP WITH AM LABS AND CONTINUE TO MONITOR PATIENT. - Past Medical Family Social History Past Med/Fam/Surg Hx: No changes since H&P Allergies: Allergies No Known Drug Allergies Allergy (Verified 06/22/17 17:36) - Review of Systems ROS: No change since H&P - Vital Signs and I&O's Vital Signs: Temperature 98.1 F Pulse Rate [Left Brachial] 96 Pulse Rate [Right Brachial] 76 Pulse Rate [Apical] 105 Pulse Rate 90 Respiratory Rate 20 Blood Pressure [Left Arm] 129/75 Blood Pressure [Right Arm] 142/75 Blood Pressure 130/74 O2 Sat by Pulse Oximetry 97 Intake and Output: Intake & Output 06/26/17 06/27/17 06/28/17 06/29/17 11:59 11:59 11:59 11:59 Intake Total 1600 2100 2730 900 Output Total 4000 Balance -2400 2100 2730 900 - Physical Exam Oriented: Normal Eyes: Normal Ear: Normal Nose: Normal Throat: Normal Respiratory: Normal Cardiovascular: Normal : Normal Auscultation: Bowel Sounds: Normal Palpation: Normal Tenderness: Normal Skin: Red, Tender, Wound (Left anterior thigh with jayson in place. Purulent drainage. Erythema and induration slightly improved. Induration without significant change medial thigh inferior from left labia. ) Musculoskeletal: Left, Thigh, Swelling, Tender Psychiatric: Normal Mood Description: Calm Speech Pattern: Clear, Appropriate - Laboratory and Diagnostics Result Diagrams: 06/28/17 03:35 06/28/17 03:35 Labs: 06/22/17 18:07 Blood Blood Culture - Final 06/22/17 18:20 Blood Blood Culture - Final 06/26/17 10:23 Drainage Gram Stain - Final 06/26/17 10:23 Drainage Wound Culture - Final Methicillin Resis Staph Aureus Laboratory WBC 7.3 X10^3/uL (3.6-10.0) 06/28/17 03:35 RBC 3.51 X10^6/uL (3.5-5.4) 06/28/17 03:35 Hgb 10.0 g/dL (12.0-16.0) L 06/28/17 03:35 Hct 29.3 % (36.0-47.0) L 06/28/17 03:35 MCV 83.3 fL (80.0-100.0) 06/28/17 03:35 MCH 28.4 pg (27.0-34.0) 06/28/17 03:35 MCHC 34.1 g/dL (33.0-35.0) 06/28/17 03:35 RDW 15.1 % (11.6-16.5) 06/28/17 03:35 Plt Count 247 X10^3/uL (150.0-450.0) 06/28/17 03:35 Plt Count Comment Adequate (ADEQUATE) 06/28/17 03:35 MPV 6.8 fL (7.4-11.0) L 06/28/17 03:35 Neut % 50.7 % (42.0-75.0) 06/28/17 03:35 Lymph % 38.2 % (21.0-51.0) 06/28/17 03:35 [place] % 7.0 % (0.0-13.0) 06/28/17 03:35 Eos % 3.5 % (0.9-2.9) H 06/28/17 03:35 Baso % 0.6 % (0.2-1.0) 06/28/17 03:35 Neut # 3.7 x10^3/uL (2.2-4.8) 06/28/17 03:35 Lymph # 2.8 X10^3/uL (1.3-2.9) 06/28/17 03:35 [place] # 0.5 x10^3/uL (0.3-0.8) 06/28/17 03:35 Eos # 0.3 x10^3/uL (0.0-0.2) H 06/28/17 03:35 Baso # 0.0 X10^3/uL (0.0-0.1) 06/28/17 03:35 Absolute Nucleated RBC 0.1 /100WBC 06/28/17 03:35 Total Counted 100 06/28/17 03:35 Neutrophils % (Manual) 51 % (39-76) 06/28/17 03:35 Band Neutrophils % 3 % (0-10) 06/28/17 03:35 Lymphocytes % (Manual) 34 % (13-43) 06/28/17 03:35 Monocytes % (Manual) 7 % (4-9) 06/28/17 03:35 Eosinophils % (Manual) 5 % (0-6) 06/28/17 03:35 Plt Morphology Comment Normal (NORMAL) 06/28/17 03:35 RBC Morphology Normal (NORMAL) 06/28/17 03:35 ESR 67 MM/HOUR (0-20) H 06/27/17 08:50 D-Dimer 462 ng/mL (0-400) H* 06/22/17 18:20 Sodium 143 mmol/L (136-145) 06/28/17 03:35 Corrected Sodium TNP 06/28/17 03:35 Potassium 3.4 mmol/L (3.5-5.1) L 06/28/17 03:35 Chloride 108 mmol/L (98-107) H 06/28/17 03:35 Carbon Dioxide 28.0 mmol/L (21-32) 06/28/17 03:35 BUN 8 mg/dL (7-18) 06/28/17 03:35 Creatinine 0.67 mg/dL (0.55-1.02) 06/28/17 03:35 Est GFR (MDRD) Af Amer > 60 (>60) 06/28/17 03:35 Est GFR (MDRD) Non-Af > 60 (>60) 06/28/17 03:35 Glucose 81 mg/dL (65-99) 06/28/17 03:35 Lactic Acid 2.9 mmol/L (0.4-2.0) H 06/22/17 18:20 Calcium 8.0 mg/dL (8.5-10.1) L 06/28/17 03:35 Corrected Calcium 9.8 mg/dL (8.5-10.1) 06/28/17 03:35 Magnesium 1.8 mg/dL (1.7-2.9) 06/26/17 03:15 Total Bilirubin 0.10 mg/dL (0.2-1.0) L 06/28/17 03:35 AST 8 Units/L (15-37) L 06/28/17 03:35 ALT 50 Units/L (12-78) 06/28/17 03:35 Alkaline Phosphatase 79 Units/L (46-116) 06/28/17 03:35 C-Reactive Protein 70.40 mg/L (0-3.0) H 06/27/17 08:50 Total Protein 5.5 g/dL (6.4-8.2) L 06/28/17 03:35 Albumin 1.8 g/dL (3.4-5.0) L 06/28/17 03:35 Globulin 3.7 g/dL (2.5-4.5) 06/28/17 03:35 Albumin/Globulin Ratio 0.5 Ratio (1.1-2.1) L 06/28/17 03:35 TSH 3rd Generation 2.592 uIU/mL (0.358-3.74) 06/22/17 18:20 HCG, Qual Negative <10 mIU/mL 06/25/17 14:46 Specimen Type Catherized urine 06/22/17 18:35 Urine Color Pale yellow (YELLOW) 06/22/17 18:35 Urine Appearance Clear (CLEAR) 06/22/17 18:35 Urine pH 7.0 (5.0 - 8.0) 06/22/17 18:35 Ur Specific [place] 1.010 (1.000-1.030) 06/22/17 18:35 Urine Protein Negative (NEGATIVE) 06/22/17 18:35 Urine Glucose (UA) Negative (NEGATIVE) 06/22/17 18:35 Urine Ketones Negative (NEGATIVE) 06/22/17 18:35 Urine Occult Blood Negative (NEGATIVE) 06/22/17 18:35 Urine Nitrite Negative (NEGATIVE) 06/22/17 18:35 Urine Bilirubin Negative (NEGATIVE) 06/22/17 18:35 Urine Urobilinogen Normal (NORMAL) 06/22/17 18:35 Ur Leukocyte Esterase Negative (NEGATIVE) 06/22/17 18:35 Urine RBC None seen /HPF (NEGATIVE) 06/22/17 18:35 Urine WBC 0-1 /HPF (NEGATIVE) 06/22/17 18:35 Ur Squamous Epith Cells Rare /HPF (NEGATIVE) 06/22/17 18:35 Urine Bacteria Trace /HPF (NEGATIVE) 06/22/17 18:35 Ur Culture Indicated? No/not indicated 06/22/17 18:35 Vancomycin Trough 11.2 ug/mL (15-20) L 06/27/17 21:05 Urine Opiates Screen Negative (NEG=<300) 06/22/17 18:35 Urine Methadone Screen Negative (NEG=<300) 06/22/17 18:35 Ur Barbiturates Screen Negative (NEG=<200) 06/22/17 18:35 Ur Phencyclidine Scrn Negative (NEG=<25) 06/22/17 18:35 Ur Amphetamines Screen Negative (NEG=<1000) 06/22/17 18:35 U Benzodiazepines Scrn Negative (NEG=<200) 06/22/17 18:35 Urine Cocaine Screen Negative (NEG=<300) 06/22/17 18:35 U Marijuana (THC) Screen Negative (NEG=<50) 06/22/17 18:35 - Plan (1) Cellulitis of left thigh Status: Acute Plan: Continue IV abx. Leave jayson in place. Monitor medial thigh. May need washout and exam under anesthesia in region of concern. Await cultures. Will follow. Pain meds per PCP. Restart diet.
--- NOTE | 2017-06-28 20:57 | PCM.PROG ---
Progress Note - Progress Note for Day of Date: 06/28/17 - Subjective Subjective: WAS ADMITTED FOR LEFT UPPER THIGH CELLULITIS. WAS CONSULTED AND TOOK PATIENT TO THE OR FOR I&D OF THE LEFT THIGH/INGUINAL ABSCESS WITH WASHOUT (PULSE LAVAGE). SHE HAS BEEN RECEIVING IV ANTIBIOTICS. TODAY, PATIENT IS ALERT AND ORIENTED, LYING IN BED ON MORNING ROUNDS. LEG CONTINUES WITH EDEMA AND ERYTHEMA THROUGHOUT THE THIGHT AND INGUINAL REGION THAT HAS SLIGHTLY IMPROVED SINCE YESTERDAY. A DRESSING IS NOTED TO WOUND. DRESSING REMOVED TO ASSESS. WOUND IS NOTED WITH PURULENT DRAINAGE. THERE IS A JAYSON DRAIN IN PLACE. HER VITALS SIGNS THIS MORNING ARE 97.9-80-20-98%-140/ 84. ABNORMAL LAB VALUES INCLUDE THE FOLLOWING: HGB 10.0, HCT 29.3, POTASSIUM 3.4 , CHLORIDE 108, CALCIUM 8.0, AST 8, TOTAL PROTEIN 5.5, ALBUMIN 1.8, A/G RATIO 0.5. WOUND CULTURE REPORTED GROWTH OF MRSA WHICH WAS SENSITIVE TO VANCOMYCIN. PATIENT WAS ALSO ON CLINDAMYCIN, BUT SENSITIVITY REPORTED THAT THE MRSA WAS NOT SUSCEPTIBLE TO CLINDAMYCIN. WE WILL DISCONTINUE THE CLINDAMYCIN. OTHERWISE, WE WILL CONTINUE WITH CURRENT PLAN OF CARE. WE PLAN TO FOLLOW UP WITH AM LABS AND CONTINUE TO MONITOR PATIENT. AND [facility] WILL RESUME CARE OF PATIENT TOMORROW. - Past Medical Family Social History Past Med/Fam/Surg Hx: No changes since H&P Allergies: Allergies No Known Drug Allergies Allergy (Verified 06/22/17 17:36) - Review of Systems ROS: No change since H&P - Vital Signs and I&O's Vital Signs: Temperature 98.1 F Pulse Rate [Left Brachial] 96 Pulse Rate [Right Brachial] 76 Pulse Rate [Apical] 105 Pulse Rate 90 Respiratory Rate 20 Blood Pressure [Left Arm] 129/75 Blood Pressure [Right Arm] 142/75 Blood Pressure 130/74 O2 Sat by Pulse Oximetry 97 Intake and Output: Intake & Output 06/26/17 06/27/17 06/28/17 06/29/17 11:59 11:59 11:59 11:59 Intake Total 1600 2100 2730 900 Output Total 4000 Balance -2400 2100 2730 900 - Physical Exam Oriented: Normal Eyes: Normal Ear: Normal Nose: Normal Throat: Normal Respiratory: Normal Cardiovascular: Normal : Normal Auscultation: Bowel Sounds: Normal Palpation: Normal Tenderness: Normal Skin: Red, Tender, Wound (Left anterior thigh with jayson in place. Purulent drainage. Erythema and induration slightly improved. Induration without significant change medial thigh inferior from left labia. ) Musculoskeletal: Left, Thigh, Swelling, Tender Psychiatric: Normal Mood Description: Calm Speech Pattern: Clear, Appropriate - Laboratory and Diagnostics Result Diagrams: 06/28/17 03:35 06/28/17 03:35 Labs: 06/22/17 18:07 Blood Blood Culture - Final 06/22/17 18:20 Blood Blood Culture - Final 06/26/17 10:23 Drainage Gram Stain - Final 06/26/17 10:23 Drainage Wound Culture - Final Methicillin Resis Staph Aureus Laboratory WBC 7.3 X10^3/uL (3.6-10.0) 06/28/17 03:35 RBC 3.51 X10^6/uL (3.5-5.4) 06/28/17 03:35 Hgb 10.0 g/dL (12.0-16.0) L 06/28/17 03:35 Hct 29.3 % (36.0-47.0) L 06/28/17 03:35 MCV 83.3 fL (80.0-100.0) 06/28/17 03:35 MCH 28.4 pg (27.0-34.0) 06/28/17 03:35 MCHC 34.1 g/dL (33.0-35.0) 06/28/17 03:35 RDW 15.1 % (11.6-16.5) 06/28/17 03:35 Plt Count 247 X10^3/uL (150.0-450.0) 06/28/17 03:35 Plt Count Comment Adequate (ADEQUATE) 06/28/17 03:35 MPV 6.8 fL (7.4-11.0) L 06/28/17 03:35 Neut % 50.7 % (42.0-75.0) 06/28/17 03:35 Lymph % 38.2 % (21.0-51.0) 06/28/17 03:35 [place] % 7.0 % (0.0-13.0) 06/28/17 03:35 Eos % 3.5 % (0.9-2.9) H 06/28/17 03:35 Baso % 0.6 % (0.2-1.0) 06/28/17 03:35 Neut # 3.7 x10^3/uL (2.2-4.8) 06/28/17 03:35 Lymph # 2.8 X10^3/uL (1.3-2.9) 06/28/17 03:35 [place] # 0.5 x10^3/uL (0.3-0.8) 06/28/17 03:35 Eos # 0.3 x10^3/uL (0.0-0.2) H 06/28/17 03:35 Baso # 0.0 X10^3/uL (0.0-0.1) 06/28/17 03:35 Absolute Nucleated RBC 0.1 /100WBC 06/28/17 03:35 Total Counted 100 06/28/17 03:35 Neutrophils % (Manual) 51 % (39-76) 06/28/17 03:35 Band Neutrophils % 3 % (0-10) 06/28/17 03:35 Lymphocytes % (Manual) 34 % (13-43) 06/28/17 03:35 Monocytes % (Manual) 7 % (4-9) 06/28/17 03:35 Eosinophils % (Manual) 5 % (0-6) 06/28/17 03:35 Plt Morphology Comment Normal (NORMAL) 06/28/17 03:35 RBC Morphology Normal (NORMAL) 06/28/17 03:35 ESR 67 MM/HOUR (0-20) H 06/27/17 08:50 D-Dimer 462 ng/mL (0-400) H* 06/22/17 18:20 Sodium 143 mmol/L (136-145) 06/28/17 03:35 Corrected Sodium TNP 06/28/17 03:35 Potassium 3.4 mmol/L (3.5-5.1) L 06/28/17 03:35 Chloride 108 mmol/L (98-107) H 06/28/17 03:35 Carbon Dioxide 28.0 mmol/L (21-32) 06/28/17 03:35 BUN 8 mg/dL (7-18) 06/28/17 03:35 Creatinine 0.67 mg/dL (0.55-1.02) 06/28/17 03:35 Est GFR (MDRD) Af Amer > 60 (>60) 06/28/17 03:35 Est GFR (MDRD) Non-Af > 60 (>60) 06/28/17 03:35 Glucose 81 mg/dL (65-99) 06/28/17 03:35 Lactic Acid 2.9 mmol/L (0.4-2.0) H 06/22/17 18:20 Calcium 8.0 mg/dL (8.5-10.1) L 06/28/17 03:35 Corrected Calcium 9.8 mg/dL (8.5-10.1) 06/28/17 03:35 Magnesium 1.8 mg/dL (1.7-2.9) 06/26/17 03:15 Total Bilirubin 0.10 mg/dL (0.2-1.0) L 06/28/17 03:35 AST 8 Units/L (15-37) L 06/28/17 03:35 ALT 50 Units/L (12-78) 06/28/17 03:35 Alkaline Phosphatase 79 Units/L (46-116) 06/28/17 03:35 C-Reactive Protein 70.40 mg/L (0-3.0) H 06/27/17 08:50 Total Protein 5.5 g/dL (6.4-8.2) L 06/28/17 03:35 Albumin 1.8 g/dL (3.4-5.0) L 06/28/17 03:35 Globulin 3.7 g/dL (2.5-4.5) 06/28/17 03:35 Albumin/Globulin Ratio 0.5 Ratio (1.1-2.1) L 06/28/17 03:35 TSH 3rd Generation 2.592 uIU/mL (0.358-3.74) 06/22/17 18:20 HCG, Qual Negative <10 mIU/mL 06/25/17 14:46 Specimen Type Catherized urine 06/22/17 18:35 Urine Color Pale yellow (YELLOW) 06/22/17 18:35 Urine Appearance Clear (CLEAR) 06/22/17 18:35 Urine pH 7.0 (5.0 - 8.0) 11/06/17 18:35 Ur Specific [place] 1.010 (1.000-1.030) 06/22/17 18:35 Urine Protein Negative (NEGATIVE) 06/22/17 18:35 Urine Glucose (UA) Negative (NEGATIVE) 06/22/17 18:35 Urine Ketones Negative (NEGATIVE) 06/22/17 18:35 Urine Occult Blood Negative (NEGATIVE) 06/22/17 18:35 Urine Nitrite Negative (NEGATIVE) 06/22/17 18:35 Urine Bilirubin Negative (NEGATIVE) 06/22/17 18:35 Urine Urobilinogen Normal (NORMAL) 06/22/17 18:35 Ur Leukocyte Esterase Negative (NEGATIVE) 06/22/17 18:35 Urine RBC None seen /HPF (NEGATIVE) 06/22/17 18:35 Urine WBC 0-1 /HPF (NEGATIVE) 06/22/17 18:35 Ur Squamous Epith Cells Rare /HPF (NEGATIVE) 06/22/17 18:35 Urine Bacteria Trace /HPF (NEGATIVE) 06/22/17 18:35 Ur Culture Indicated? No/not indicated 06/22/17 18:35 Vancomycin Trough 11.2 ug/mL (15-20) L 06/27/17 21:05 Urine Opiates Screen Negative (NEG=<300) 06/22/17 18:35 Urine Methadone Screen Negative (NEG=<300) 06/22/17 18:35 Ur Barbiturates Screen Negative (NEG=<200) 06/22/17 18:35 Ur Phencyclidine Scrn Negative (NEG=<25) 06/22/17 18:35 Ur Amphetamines Screen Negative (NEG=<1000) 06/22/17 18:35 U Benzodiazepines Scrn Negative (NEG=<200) 06/22/17 18:35 Urine Cocaine Screen Negative (NEG=<300) 06/22/17 18:35 U Marijuana (THC) Screen Negative (NEG=<50) 06/22/17 18:35 - Plan (1) Cellulitis of left thigh Status: Acute Plan: Continue IV abx. Leave jayson in place. Monitor medial thigh. May need washout and exam under anesthesia in region of concern. Continue to monitor.
[2017-06-28] MEDS: COLACE CAP 100 MG PO SCH (21:33)
[2017-06-28] MEDS: BENADRYL INJ 50 MG VIAL IVP PRN (21:36)
[2017-06-29] MEDS: TORADOL 30 MG VIAL IVP SCH ×4 (02:27→19:11)
[2017-06-29] MEDS: NS 1000 ML 1,000 ML IV SCH ×3 (02:27→15:00)
[2017-06-29 05:18] LABS: BASOPHILS # (AUTO) 0.1 X10^3/uL (0.0-0.1); BASOPHILS % (AUTO) 0.7 % (0.2-1.0); EOSINOPHILS # (AUTO) 0.3 x10^3/uL (0.0-0.2); EOSINOPHILS % (AUTO) 3.1 % (0.9-2.9); HEMATOCRIT 27.6 % (36.0-47.0); HEMOGLOBIN 9.6 g/dL (12.0-16.0); LYMPHOCYTES % (AUTO) 36.1 % (21.0-51.0); MEAN CORPUSCULAR HEMOGLOBIN 28.8 pg (27.0-34.0); MEAN CORPUSCULAR HGB CONC 34.9 g/dL (33.0-35.0); MEAN CORPUSCULAR VOLUME 82.5 fL (80.0-100.0); MEAN PLATELET VOLUME 6.8 fL (7.4-11.0); MONOCYTES # (AUTO) 0.4 x10^3/uL (0.3-0.8); NEUTROPHILS # (AUTO) 4.6 x10^3/uL (2.2-4.8); NEUTROPHILS % (AUTO) 55.1 % (42.0-75.0); PLATELET COUNT 321 X10^3/uL (150.0-450.0); RED BLOOD COUNT 3.35 X10^6/uL (3.5-5.4); RED CELL DISTRIBUTION WIDTH 15.3 % (11.6-16.5); WHITE BLOOD COUNT 8.4 X10^3/uL (3.6-10.0)
[2017-06-29 05:23] LABS: ALANINE AMINOTRANSFERASE 41 Units/L (12-78); ALBUMIN 1.9 g/dL (3.4-5.0); ALKALINE PHOSPHATASE 72 Units/L (46-116); ASPARTATE AMINO TRANSFERASE 13 Units/L (15-37); BLOOD UREA NITROGEN 11 mg/dL (7-18); CARBON DIOXIDE 27.5 mmol/L (21-32); CHLORIDE 107 mmol/L (98-107); COR CA(FOR HYPOALB) 9.7 mg/dL (8.5-10.1); CREATININE 0.73 mg/dL (0.55-1.02); SODIUM 143 mmol/L (136-145); TOTAL PROTEIN 5.4 g/dL (6.4-8.2); eGFR BLACK RACES > 60 (>60); eGFR NON BLACK RACES > 60 (>60)
[2017-06-29 05:35] LABS: CREATININE 0.85 mg/dL (0.55-1.02); VANCOMYCIN,TROUGH 17.4 ug/mL (15-20)
[2017-06-29 05:50] LABS: BAND NEUTROPHILS % 5 % (0-10); PLATELET MORPHOLOGY COMMENT NORMAL (NORMAL)
[2017-06-29] MEDS: VANCOMYCIN HCL 1 GM VIAL 1 GM in D5W 250 ML IV 250 ML IV SCH ×3 (05:54→22:36)
[2017-06-29] MEDS: HEPARIN SODIUM INJ 5000 UNITS SC SCH ×3 (05:54→22:28)
[2017-06-29] MEDS: PERCOCET TAB 5/325 MG PO PRN ×3 (09:26→22:24)
[2017-06-29] MEDS ORDERED: LR 1000 ML IV 1,000 ML IV ONE (10:49)
[2017-06-29] MEDS ORDERED: MARCAINE 0.25% INJ ONE (11:01)
[2017-06-29] MEDS ORDERED: XYLOCAINE 1% and EPINEPHRINE 1:100,000 ONE (11:01)
[2017-06-29] MEDS ORDERED: FENTANYL INJ 100 mcg ONE (11:13)
[2017-06-29] MEDS ORDERED: DIPRIVAN VIAL 20 ML ONE (12:10)
--- NOTE | 2017-06-29 12:37 | OR.GENERIC ---
Post-Op Note Generic - Post-Op Note Operative Report: Date of Operation: June 29, 2017 Pre-Operative Diagnosis: Left thigh / inguinal abscess status post incision and drainage. Post-Operative Diagnosis: Left thigh / inguinal abscess status post incision and drainage. Procedure: Washout of left thigh / inguinal abscess with debridement necrotic fat. Surgeon: Price Villalba MD Logistician: Cierra Escalante CRNA. Anesthesia: Monitored anesthesia care and local. Specimen: None. Estimated blood loss: Minimal. Complications: None. Summary: The patient is a 27 year old female who presented with a left thigh / inguinal abscess. The patient underwent outpatient incision and drainage with improvement of induration and erythema. However, the Odette drain was accidentally removed and induration persisted across the anterior thigh and medially inferior to the labia. The patient was offered washout and possibly further incision and drainage. The risk and benefits of the procedure including difficulty with anesthesia, bleeding, infection, scar formation, delayed healing, as well as recurrence were discussed with the patient. The patient understood these risks and requested the procedure. On June 29, 2017, the patient was brought to the operative theatre. A time out was performed verifying the patient and the procedure. After satisfactory induction of monitored anesthesia care, the left thigh / inguinal region was prepped and draped in the usual fashion. Local anesthetic was infiltrated around the area of induration. The previous wound track was examined. Necrotic fat was removed along the anterior thigh using electrocautery and blunt dissection. On the medial aspect a small amount of purulent drainage was noted. Therefore, the medial incision was extended slightly on the medial aspect. No true abscess was seen. Necrotic fat in the region was removed using electrocautery. All loculations were disrupted bluntly. The entire wound was irrigated with a pulse lavage using 3 liters of irrigation. Bleeding was controlled using electrocautery. A Odette was placed though the abscess cavity. The ends were sewn into position at both incisions using 2-0 Ethilon suture. The skin edges at both incisions were loosely closed using interrupted 2-0 Ethilon sutures. A sterile dressing was placed. The patient was awakened and taken to the recovery room in stable condition. There were no complications. All counts were correct.
[2017-06-29] MEDS ORDERED: MORPHINE SULFATE INJ 2 MG INJ IVP PRN (13:00)
[2017-06-29] MEDS: PHENERGAN INJ 25 MG IV PRN ×2 (13:10→22:25)
--- NOTE | 2017-06-29 13:22 | PCM.PROG ---
Progress Note - Progress Note for Day of Date: 06/29/17 - Subjective Subjective: WAS ADMITTED FOR LEFT UPPER THIGH CELLULITIS. WAS CONSULTED AND TOOK PATIENT TO THE OR FOR I&D OF THE LEFT THIGH LAST WEEK. SHE HAS BEEN RECEIVING IV ANTIBIOTICS. TODAY, PATIENT IS ALERT AND ORIENTED, LYING IN BED ON MORNING ROUNDS. LEG CONTINUES WITH EDEMA AND ERYTHEMA THROUGHOUT THE THIGHT AND INGUINAL REGION THAT HAS SLIGHTLY IMPROVED SINCE YESTERDAY. A DRESSING IS NOTED TO WOUND. DRESSING REMOVED TO ASSESS. WOUND IS NOTED WITH PURULENT DRAINAGE. DR MORRISON TO REASSESS TODAY. WE PLAN TO FOLLOW UP WITH AM LABS AND CONTINUE TO MONITOR PATIENT - Past Medical Family Social History Past Med/Fam/Surg Hx: No changes since H&P Allergies: Allergies No Known Drug Allergies Allergy (Verified 06/22/17 17:36) - Review of Systems ROS: No change since H&P - Vital Signs and I&O's Vital Signs: Temperature 97.4 F Pulse Rate [Left Brachial] 62 Pulse Rate [Right Brachial] 76 Pulse Rate [Apical] 105 Pulse Rate 71 Respiratory Rate 18 Blood Pressure [Left Arm] 134/72 Blood Pressure [Right Arm] 142/75 Blood Pressure 131/79 O2 Sat by Pulse Oximetry 96 Intake and Output: Intake & Output 06/27/17 06/28/17 06/29/17 06/30/17 11:59 11:59 11:59 11:59 Intake Total 2100 2730 3690 Balance 2100 2730 3690 - Physical Exam Oriented: Normal Eyes: Normal Ear: Normal Nose: Normal Throat: Normal Respiratory: Normal Cardiovascular: Normal : Normal Auscultation: Bowel Sounds: Normal Tenderness: Normal Skin: Red, Tender, Wound (Left anterior thigh with jayson in place. Purulent drainage. Erythema and induration slightly improved. Induration without significant change medial thigh inferior from left labia. ) Musculoskeletal: Left, Thigh, Swelling, Tender Psychiatric: Normal Mood Description: Calm Speech Pattern: Clear, Appropriate - Laboratory and Diagnostics Result Diagrams: 06/29/17 03:55 06/29/17 03:55 Labs: 06/22/17 18:07 Blood Blood Culture - Final 06/22/17 18:20 Blood Blood Culture - Final 06/26/17 10:23 Drainage Gram Stain - Final 06/26/17 10:23 Drainage Wound Culture - Final Methicillin Resis Staph Aureus Laboratory WBC 8.4 X10^3/uL (3.6-10.0) 06/29/17 03:55 RBC 3.35 X10^6/uL (3.5-5.4) L 06/29/17 03:55 Hgb 9.6 g/dL (12.0-16.0) L 06/29/17 03:55 Hct 27.6 % (36.0-47.0) L 06/29/17 03:55 MCV 82.5 fL (80.0-100.0) 06/29/17 03:55 MCH 28.8 pg (27.0-34.0) 06/29/17 03:55 MCHC 34.9 g/dL (33.0-35.0) 06/29/17 03:55 RDW 15.3 % (11.6-16.5) 06/29/17 03:55 Plt Count 321 X10^3/uL (150.0-450.0) 06/29/17 03:55 Plt Count Comment Adequate (ADEQUATE) 06/29/17 03:55 MPV 6.8 fL (7.4-11.0) L 06/29/17 03:55 Neut % 55.1 % (42.0-75.0) 06/29/17 03:55 Lymph % 36.1 % (21.0-51.0) 06/29/17 03:55 [place] % 5.0 % (0.0-13.0) 06/29/17 03:55 Eos % 3.1 % (0.9-2.9) H 06/29/17 03:55 Baso % 0.7 % (0.2-1.0) 06/29/17 03:55 Neut # 4.6 x10^3/uL (2.2-4.8) 06/29/17 03:55 Lymph # 3.0 X10^3/uL (1.3-2.9) H 06/29/17 03:55 [place] # 0.4 x10^3/uL (0.3-0.8) 06/29/17 03:55 Eos # 0.3 x10^3/uL (0.0-0.2) H 06/29/17 03:55 Baso # 0.1 X10^3/uL (0.0-0.1) 06/29/17 03:55 Absolute Nucleated RBC 0.0 /100WBC 06/29/17 03:55 Total Counted 100 06/29/17 03:55 Neutrophils % (Manual) 48 % (39-76) 06/29/17 03:55 Band Neutrophils % 5 % (0-10) 06/29/17 03:55 Lymphocytes % (Manual) 38 % (13-43) 06/29/17 03:55 Monocytes % (Manual) 6 % (4-9) 06/29/17 03:55 Eosinophils % (Manual) 3 % (0-6) 06/29/17 03:55 Plt Morphology Comment Normal (NORMAL) 06/29/17 03:55 RBC Morphology Normal (NORMAL) 06/29/17 03:55 ESR 67 MM/HOUR (0-20) H 06/27/17 08:50 D-Dimer 462 ng/mL (0-400) H* 06/22/17 18:20 Sodium 143 mmol/L (136-145) 06/29/17 03:55 Corrected Sodium TNP 06/29/17 03:55 Potassium 3.4 mmol/L (3.5-5.1) L 06/29/17 03:55 Chloride 107 mmol/L (98-107) 06/29/17 03:55 Carbon Dioxide 27.5 mmol/L (21-32) 06/29/17 03:55 BUN 11 mg/dL (7-18) 06/29/17 03:55 Creatinine 0.85 mg/dL (0.55-1.02) 06/29/17 03:55 Est GFR (MDRD) Af Amer > 60 (>60) 06/29/17 03:55 Est GFR (MDRD) Non-Af > 60 (>60) 06/29/17 03:55 Glucose 84 mg/dL (65-99) 06/29/17 03:55 Lactic Acid 2.9 mmol/L (0.4-2.0) H 06/22/17 18:20 Calcium 8.0 mg/dL (8.5-10.1) L 06/29/17 03:55 Corrected Calcium 9.7 mg/dL (8.5-10.1) 06/29/17 03:55 Magnesium 1.8 mg/dL (1.7-2.9) 06/26/17 03:15 Total Bilirubin 0.20 mg/dL (0.2-1.0) 06/29/17 03:55 AST 13 Units/L (15-37) L 06/29/17 03:55 ALT 41 Units/L (12-78) 06/29/17 03:55 Alkaline Phosphatase 72 Units/L (46-116) 06/29/17 03:55 C-Reactive Protein 70.40 mg/L (0-3.0) H 06/27/17 08:50 Total Protein 5.4 g/dL (6.4-8.2) L 06/29/17 03:55 Albumin 1.9 g/dL (3.4-5.0) L 06/29/17 03:55 Globulin 3.5 g/dL (2.5-4.5) 06/29/17 03:55 Albumin/Globulin Ratio 0.5 Ratio (1.1-2.1) L 06/29/17 03:55 TSH 3rd Generation 2.592 uIU/mL (0.358-3.74) 06/22/17 18:20 HCG, Qual Negative <10 mIU/mL 06/25/17 14:46 Specimen Type Catherized urine 06/22/17 18:35 Urine Color Pale yellow (YELLOW) 06/22/17 18:35 Urine Appearance Clear (CLEAR) 06/22/17 18:35 Urine pH 7.0 (5.0 - 8.0) 06/22/17 18:35 Ur Specific [place] 1.010 (1.000-1.030) 06/22/17 18:35 Urine Protein Negative (NEGATIVE) 06/22/17 18:35 Urine Glucose (UA) Negative (NEGATIVE) 06/22/17 18:35 Urine Ketones Negative (NEGATIVE) 06/22/17 18:35 Urine Occult Blood Negative (NEGATIVE) 06/22/17 18:35 Urine Nitrite Negative (NEGATIVE) 06/22/17 18:35 Urine Bilirubin Negative (NEGATIVE) 06/22/17 18:35 Urine Urobilinogen Normal (NORMAL) 06/22/17 18:35 Ur Leukocyte Esterase Negative (NEGATIVE) 06/22/17 18:35 Urine RBC None seen /HPF (NEGATIVE) 06/22/17 18:35 Urine WBC 0-1 /HPF (NEGATIVE) 06/22/17 18:35 Ur Squamous Epith Cells Rare /HPF (NEGATIVE) 06/22/17 18:35 Urine Bacteria Trace /HPF (NEGATIVE) 06/22/17 18:35 Ur Culture Indicated? No/not indicated 06/22/17 18:35 Vancomycin Trough 17.4 ug/mL (15-20) 06/29/17 03:55 Urine Opiates Screen Negative (NEG=<300) 06/22/17 18:35 Urine Methadone Screen Negative (NEG=<300) 06/22/17 18:35 Ur Barbiturates Screen Negative (NEG=<200) 06/22/17 18:35 Ur Phencyclidine Scrn Negative (NEG=<25) 06/22/17 18:35 Ur Amphetamines Screen Negative (NEG=<1000) 06/22/17 18:35 U Benzodiazepines Scrn Negative (NEG=<200) 06/22/17 18:35 Urine Cocaine Screen Negative (NEG=<300) 06/22/17 18:35 U Marijuana (THC) Screen Negative (NEG=<50) 06/22/17 18:35 - Plan (1) Cellulitis of left thigh Status: Acute Plan: Continue IV abx, REPEAT AM LABS. Monitor medial thigh, continue wound care and pain control. Dr Morrison to reassess today (2) Fever Status: Acute
[2017-06-29] MEDS ORDERED: VERSED ONE (14:42)
[2017-06-29] MEDS ORDERED: DIPRIVAN VIAL ONE (14:42)
[2017-06-29] MEDS: COLACE CAP 100 MG PO SCH (20:58)
[2017-06-30] MEDS: TORADOL 30 MG VIAL IVP SCH ×4 (01:13→18:30)
[2017-06-30] MEDS: NS 1000 ML 1,000 ML IV SCH ×3 (02:32→12:30)
[2017-06-30 05:21] LABS: BASOPHILS # (AUTO) 0.1 X10^3/uL (0.0-0.1); BASOPHILS % (AUTO) 0.9 % (0.2-1.0); EOSINOPHILS # (AUTO) 0.2 x10^3/uL (0.0-0.2); EOSINOPHILS % (AUTO) 2.4 % (0.9-2.9); HEMATOCRIT 29.8 % (36.0-47.0); HEMOGLOBIN 10.1 g/dL (12.0-16.0); LYMPHOCYTES % (AUTO) 31.6 % (21.0-51.0); MEAN CORPUSCULAR HEMOGLOBIN 28.4 pg (27.0-34.0); MEAN CORPUSCULAR HGB CONC 33.8 g/dL (33.0-35.0); MEAN CORPUSCULAR VOLUME 83.9 fL (80.0-100.0); MEAN PLATELET VOLUME 6.6 fL (7.4-11.0); MONOCYTES # (AUTO) 0.5 x10^3/uL (0.3-0.8); MONOCYTES % (AUTO) 4.9 % (0.0-13.0); NEUTROPHILS # (AUTO) 5.6 x10^3/uL (2.2-4.8); NEUTROPHILS % (AUTO) 60.2 % (42.0-75.0); PLATELET COUNT 386 X10^3/uL (150.0-450.0); RED BLOOD COUNT 3.55 X10^6/uL (3.5-5.4); RED CELL DISTRIBUTION WIDTH 15.5 % (11.6-16.5); WHITE BLOOD COUNT 9.4 X10^3/uL (3.6-10.0)
[2017-06-30 05:24] LABS: ALANINE AMINOTRANSFERASE 38 Units/L (12-78); ALBUMIN 2.1 g/dL (3.4-5.0); ALKALINE PHOSPHATASE 77 Units/L (46-116); ASPARTATE AMINO TRANSFERASE 17 Units/L (15-37); BLOOD UREA NITROGEN 9 mg/dL (7-18); CALCIUM 8.3 mg/dL (8.5-10.1); CARBON DIOXIDE 27.5 mmol/L (21-32); COR CA(FOR HYPOALB) 9.8 mg/dL (8.5-10.1); CREATININE 0.65 mg/dL (0.55-1.02); TOTAL PROTEIN 5.7 g/dL (6.4-8.2); eGFR BLACK RACES > 60 (>60); eGFR NON BLACK RACES > 60 (>60)
[2017-06-30 05:35] LABS: CHLORIDE 106 mmol/L (98-107); SODIUM 142 mmol/L (136-145)
[2017-06-30 06:12] LABS: BAND NEUTROPHILS % 2 % (0-10)
[2017-06-30 06:13] LABS: PLATELET MORPHOLOGY COMMENT NORMAL (NORMAL)
[2017-06-30] MEDS: VANCOMYCIN HCL 1 GM VIAL 1 GM in D5W 250 ML IV 250 ML IV SCH ×4 (06:13→22:54)
[2017-06-30] MEDS: HEPARIN SODIUM INJ 5000 UNITS SC SCH ×4 (06:22→22:56)
[2017-06-30] MEDS: PERCOCET TAB 5/325 MG PO PRN ×2 (09:28→22:56)
[2017-06-30 21:45] LABS: CREATININE 0.76 mg/dL (0.55-1.02); VANCOMYCIN,TROUGH 10.2 ug/mL (15-20)
[2017-06-30] MEDS: COLACE CAP 100 MG PO SCH (22:54)
[2017-06-30] MEDS: PHENERGAN INJ 25 MG IV PRN (22:57)
[2017-07-01] MEDS: NS 1000 ML 1,000 ML IV SCH ×3 (00:20→16:04)
[2017-07-01] MEDS: TORADOL 30 MG VIAL IVP SCH ×3 (00:36→14:10)
[2017-07-01 04:41] LABS: BASOPHILS # (AUTO) 0.1 X10^3/uL (0.0-0.1); BASOPHILS % (AUTO) 0.8 % (0.2-1.0); EOSINOPHILS # (AUTO) 0.2 x10^3/uL (0.0-0.2); EOSINOPHILS % (AUTO) 2.3 % (0.9-2.9); HEMATOCRIT 29.8 % (36.0-47.0); MEAN CORPUSCULAR HEMOGLOBIN 28.3 pg (27.0-34.0); MEAN CORPUSCULAR HGB CONC 33.5 g/dL (33.0-35.0); MEAN CORPUSCULAR VOLUME 84.3 fL (80.0-100.0); MEAN PLATELET VOLUME 6.4 fL (7.4-11.0); MONOCYTES # (AUTO) 0.4 x10^3/uL (0.3-0.8); MONOCYTES % (AUTO) 4.1 % (0.0-13.0); NEUTROPHILS % (AUTO) 57.8 % (42.0-75.0); PLATELET COUNT 406 X10^3/uL (150.0-450.0); RED BLOOD COUNT 3.54 X10^6/uL (3.5-5.4); RED CELL DISTRIBUTION WIDTH 15.9 % (11.6-16.5); WHITE BLOOD COUNT 8.7 X10^3/uL (3.6-10.0)
[2017-07-01 04:47] LABS: ALANINE AMINOTRANSFERASE 41 Units/L (12-78); ALBUMIN 2.2 g/dL (3.4-5.0); ALKALINE PHOSPHATASE 74 Units/L (46-116); ASPARTATE AMINO TRANSFERASE 24 Units/L (15-37); BLOOD UREA NITROGEN 9 mg/dL (7-18); CALCIUM 8.3 mg/dL (8.5-10.1); CARBON DIOXIDE 30.9 mmol/L (21-32); CHLORIDE 105 mmol/L (98-107); COR CA(FOR HYPOALB) 9.7 mg/dL (8.5-10.1); CREATININE 0.66 mg/dL (0.55-1.02); SODIUM 141 mmol/L (136-145); TOTAL PROTEIN 5.7 g/dL (6.4-8.2); eGFR BLACK RACES > 60 (>60); eGFR NON BLACK RACES > 60 (>60)
[2017-07-01 05:11] LABS: BAND NEUTROPHILS % 4 % (0-10)
[2017-07-01 05:12] LABS: PLATELET MORPHOLOGY COMMENT ABNORMAL (NORMAL)
[2017-07-01] MEDS: HEPARIN SODIUM INJ 5000 UNITS SC SCH ×2 (05:48→14:10)
[2017-07-01] MEDS: VANCOMYCIN HCL 1 GM VIAL 1 GM in D5W 250 ML IV 250 ML IV SCH ×2 (05:51→14:10)
[2017-07-01] MEDS: PERCOCET TAB 5/325 MG PO PRN (08:49)
[2017-07-01] MEDS ORDERED: [UNRECOGNIZED DRUG - OTHER] IV NR (14:00)
[2017-07-01] MEDS ORDERED: D5W IV NR (14:00)
[2017-07-01] MEDS ORDERED: NS 250 ML IV 250 ML IV ONE (14:40)
[2017-07-01 16:57] VITALS: BP 130/74
== END 2017-07-01 18:40 | disposition home or self-care (01) | DRG 581 ==
LOC: ER 17:51 → OBSVTOIN 21:56 → ICU 21:56 → MED/SURG 06-25 19:55
PROVIDERS: ADMIT Internal Medicine; ATTEND Internal Medicine
PROC: 0Y960ZX Drainage of Left Inguinal Region, Open Approach, Diagnostic (ICD-10-PCS; principal; 2017-06-26 15:45)
PROC: 0JDM0ZZ Extraction of Left Upper Leg Subcutaneous Tissue and Fascia, Open Approach (ICD-10-PCS; 2017-06-29)
DX: L03.116 Cellulitis of left lower limb (principal); R00.0 Tachycardia, unspecified; R74.8 Abnormal levels of other serum enzymes; R07.2 Precordial pain; R50.9 Fever, unspecified; R79.82 Elevated C-reactive protein (CRP); R79.1 Abnormal coagulation profile; B95.62 Methicillin resistant Staphylococcus aureus infection as the cause of diseases classified elsewhere
CPT/HCPCS: 36415; 71010; 71275; 73701; 80053; 80202; 80307; 81001; 82565; 83605; 83735; 84132; 84443; 84703; 85025; 85378; 85652; 86140; 87040; 87070; 87077; 87186; 87205; 93005; 93010; 93971; 96365; 96367; 96374; 96375; 99283; 99285; A4222; S0020; G0434; J0077; J1170; J1200; J1644; J1885; J2001; J2185; J2250; J2270; J2550; J3010; J3370; J3480; J3490; J7120